=== PATIENT | female | born 1960 | race Caucasian/White ===

== ENCOUNTER → 2018-04-12 15:55 | Outpatient (CLI) | payer BC, SELFPAY ==
--- NOTE | 2018-04-12 16:01 | MM_ITS ---
MM Dig screening mamm BI w/CAD CAD Screening ORDERING PHYSICIAN : Emmie Pickering MD PATIENT AGE: 57 years GENDER: Female HISTORY 57-year-old no hormones no new complaints noncontributory family history COMPARISON: Previous mammograms: September. February 2017 TECHNIQUE: Standard CC and MLO images were obtained. R2 CAD reviewed. FINDINGS: No significant change since previous studies. Mild/moderate residual fibroglandular elements with Some minimal nodularity bilaterally which remain stable since studies dating back to 2014 and 2013 with no significant new areas of concern in either breast. Bilateral follow-up in one year adequate . -------IMPRESSION: ------- Stable bilateral mammogram. No significant new findings. Bilateral follow-up in one year recommended BI-RADS Category: 2 Benign Finding(s) RECOMMENDED FOLLOW-UP: 1YR - 1 YEAR FOLLOW-UP (A letter has been sent to the patient regarding results of the study.)
== END ==
PROVIDERS: Family Provider Family Medicine; PCP Family Medicine; Visit Provider Family Medicine
DX: Z12.31 Encounter for screening mammogram for malignant neoplasm of breast (principal)
CPT/HCPCS: 77067

== ENCOUNTER → 2019-06-03 12:51 | Outpatient (CLI) | payer BC, SELFPAY ==
--- NOTE | 2019-06-03 12:55 | MM_ITS ---
MM Dig screening mamm BI w/CAD ORDERING PHYSICIAN : Emmie Pickering MD PATIENT AGE: 58 years GENDER: Female COMPARISON: Previous digital bilateral mammogram for comparison from February 2017, March 2018, September 2015 INDICATION: ..Routine screening mammogram. No hormones. No new complaints. Noncontributory family history. TECHNIQUE: Standard CC and MLO images were obtained. R2 CAD reviewed. Additional right MLO view; & left cc view nipple profile FINDINGS: Scattered nodular density bilaterally again seen with no unique or discrete new finding of significant concern. Moderate fatty replacement with mild/moderate residual fibroglandular elements and minimal scattered nodularity bilaterally. Same pattern today is previous studies bilateral follow-up in one year recommended. No new dominant mass. No suspicious calcifications. LEFT BREAST: minimal nodularity lateral retroareolar region is unchanged studies dating back to 2007, 2017 2013 RIGHT BREAST the subtle low-density nodularity at the at right retroareolar region most likely reflecting ductal prominence. In either case it appears Stable since 2013 with no significant new findings ...... IMPRESSION: ...... No new areas of significant concern. Stable bilateral mammogram. Stable mild asymmetry & stable minimal nodularity bilaterally . Bilateral follow-up one year recommended BI-RADS Category: 2 Benign Finding(s) RECOMMENDED FOLLOW-UP: 1YR 1 YEAR FOLLOW-UP (A letter has been sent to the patient regarding results of the study.)
--- NOTE | 2019-06-03 12:57 | XR_ITS ---
XR DEXA axial skeleton HISTORY: ITS.REASON: POST MENOPAUSAL SCREENING ORDERING PHYSICIAN: Emmie Pickering MD PATIENT AGE: 58 years COMPARISON: None FINDINGS: The BMD measured at the Left femoral neck is 0.973 g/cm squared with a T score of -0.5. This is considered Normal according to the World Health Organization criteria. Fracture risk is Low. . The L1 L4 density has a T score 4.7 which is normal IMPRESSION: Normal bone density. Low fracture risk. Suggest follow-up exam May 2001
== END ==
PROVIDERS: PCP Family Medicine; Visit Provider Family Medicine
DX: Z78.0 Asymptomatic menopausal state (principal); Z12.31 Encounter for screening mammogram for malignant neoplasm of breast
CPT/HCPCS: 77067; 77080

== ENCOUNTER → 2020-09-05 09:50 | Outpatient (CLI) | payer BC, SELFPAY ==
--- NOTE | 2020-09-05 09:57 | XR_ITS ---
PROCEDURE: XR HIP RT 2-3V W/PELVIS CLINICAL INDICATION: RT HIP PAIN COMPARISON: No exams were available for comparison FINDINGS: Moderate osteoarthritic changes are present involving the right hip. There is prominent exostosis involving the lateral aspect of the right acetabulum. This could result in impingement symptomatology. Correlation with clinical findings needed. There are mild osteoarthritic arthritic changes of the left hip and both SI joints. IMPRESSION: Moderate osteoarthritis of the right hip with prominent hyperostosis the lateral aspect of the acetabulum which could result in impingement symptomatology. Dictated by: Brandan Camacho MD 09/05/2020 16:10 Brandan Camacho MD in [place] 09/05/2020 16:10
== END ==
PROVIDERS: PCP Family Medicine; Visit Provider Family Medicine
DX: M25.551 Pain in right hip (principal)
CPT/HCPCS: 73502

== ENCOUNTER → 2021-03-05 09:26 | Outpatient (CLI) | payer BC, SELFPAY ==
--- NOTE | 2021-03-05 09:30 | XR_ITS ---
PROCEDURE: XR HIP RT 2-3V W/PELVIS CLINICAL INDICATION: RT HIP PAIN COMPARISON: CR XR HIP RT 2-3V W/PELVIS from 09/05/2020 FINDINGS: There are osteoarthritic changes of the right hip with loss of joint space superiorly and osteophyte formation along the acetabulum and femoral head inferiorly. There is a prominent bony hypertrophy along the lateral aspect of the acetabulum similar to the previous exam. Osteoarthritic changes are present in the right SI joint. No acute fracture or dislocation. IMPRESSION: No change osteoarthritis of the right hip with prominent bony hypertrophy along the lateral acetabulum which could result in impingement symptomatology. Dictated by: Brandan Camacho MD 03/05/2021 13:20 Brandan Camacho MD in [place] 03/05/2021 13:20
== END ==
PROVIDERS: PCP Family Medicine; Visit Provider Family Medicine
DX: M25.551 Pain in right hip (principal)
CPT/HCPCS: 73502

== ENCOUNTER → 2021-07-19 15:18 | Outpatient (CLI) | payer BC, SELFPAY ==
--- NOTE | 2021-07-19 15:21 | MM_ITS ---
PROCEDURE: MM DIG SCREENING MAMM BI W/CAD Digital Breast Tomosynthesis Included CLINICAL INDICATION: SCREENING COMPARISON: MG DMSB DIG MAMM-SCREEN HU W/CAD from 03/13/2017 MG SCBI MM Dig screening mamm BI w/CAD from 04/12/2018 MG DIG MAMM-SCREEN HU from 06/03/2019 TECHNIQUE: Standard CC and MLO images and 3D Tomosynthesis was obtained. R2 CAD reviewed. FINDINGS: Average fibroglandular tissue.. Bilateral benign-appearing nodules. No suspicious appearing mass, malignant-appearing microcalcification, architectural distortion, or skin thickening. No significant change IMPRESSION: Benign findings. No evidence of malignancy BI-RAD Category: 2 Benign Finding FOLLOW-UP: 1 YR 1 Year Follow-up (A letter has been sent to the patient regarding results of the study.) Dictated by: Brandan Camacho MD 07/25/2021 09:31 Brandan Camacho MD in [place] 07/25/2021 09:31
== END ==
PROVIDERS: PCP Family Medicine; Visit Provider Family Medicine
DX: Z12.31 Encounter for screening mammogram for malignant neoplasm of breast (principal)
CPT/HCPCS: 77063; 77067

== ENCOUNTER → 2021-10-17 13:07 | Outpatient (CLI) | payer BC, SELFPAY ==
--- NOTE | 2021-10-17 13:13 | CA_ITS ---
APPROVED REPORT EXAM: Comprehensive 2D, Doppler, and color-flow Echocardiogram Stone Decorator: ILIA Cunningham, RVS Ht: 5 ft 2 in Wt: 223lbs BSA: 2.00 BP: 150/90 mmHg Indications: Shortness of Breath, Atrial Fibrillation, Obesity, Hypertension/HDD 2D Dimensions LVDd 5.21 cm LA Volume 95.70 mL Aortic Root 2.57 cm LA Volume Index 47.90 mL/m2 (M/F) 16-34 Left Atrium 4.82 cm LVOT 1.90 cm (M/F) 1.5-2.5 M-Mode Dimensions RVDd 1.86 cm (0.9-2.6) LA Diam 4.58 cm (1.9-4.0) LVDd 5.66 cm (3.5-5.7) Ao Diam 2.74 cm (2.0-3.7) LVDs 3.72 cm (3.5-5.7) IVSd 0.76 cm (0.6-1.1) PWd 0.76 cm (0.6-1.1) EF (Teich) 62.60% EPSs 0.69 cm FS 34.30% EDV (Teich) 157.50 mL TAPSE 1.57 (<1.7) ESV (Teich) 58.90 mL LV Diastology E Decel Time 183.00 (160-240 msec) E/A Ratio 1.85 MED E' 9.70 (< 7 cm/sec) MED A' 7.30 cm/s E'/MED E' Ratio 9.57 (>14) LAT E' 9.30 (<10 cm/sec) LAT A' 5.70 cm/s E/LAT E' Ratio 9.98 (>14) Aortic Valve LVOT Max 108.00 (70-110 cm/s) LVOT VTI 26.82 cm AO Peak GR. 6.00 mmHg Mitral Valve MV A Velocity 50.00 (40-130 cm/s) E/A Ratio 1.85 MV Decel. Time 183.00 (160-240 ms) MV Mean Gr. 1.70 (<2mmHg) Pulmonary Valve PV Peak Velocity 83.00 (50-150 cm/s) Tricuspid Valve TR P. Velocity 240.00 cm/s RAP Estimate 10.00 mmHg RVSP 33.00 mmHg Left Ventricle Left atrium is moderately enlarged, left ventricle is normal size, there is mild concentric left ventricular hypertrophy, visually estimated ejection fraction 50% with no regional wall motion abnormality, grade 2 diastolic dysfunction seen without tissue Doppler evidence of raise left atrial pressure. Right Ventricle Right atrium and right ventricle mildly enlarged with normal contractility. Aortic Valve Aortic valve is thickened and calcified without aortic stenosis or aortic insufficiency. Mitral Valve Mitral valve leaflets are minimally thickened, there is mild mitral regurgitation. Tricuspid Valve Tricuspid valve grossly normal, there is mild tricuspid regurgitation, calculated right ventricular systolic pressure 33 mmHg. Pulmonic Valve Pulmonic valve is poorly visualized. Great Vessels Aortic root is normal size. Inferior vena cava is normal size with normal inspiratory collapse. Pericardium No significant pericardial effusion noted. Conclusion 1. Biatrial enlargement, normal left ventricular size, mild concentric left ventricular hypertrophy, visually estimated ejection fraction 50% with no regional wall motion abnormality, grade 2 diastolic dysfunction seen without tissue Doppler evidence of raise left atrial pressure. 2. Mildly enlarged right ventricle with normal contractility. 3. Mild mitral and tricuspid regurgitation. Calculated right ventricular systolic pressure 33 mmHg. 4. No significant pericardial effusion noted. 5. Inferior vena cava is normal size with normal inspiratory collapse. Electronically signed by : Tom Godinez MD 10/17/2021 14:57:01
== END ==
PROVIDERS: PCP Family Medicine; Visit Provider Family Medicine
DX: R06.09 Other forms of dyspnea (principal); I48.91 Unspecified atrial fibrillation
CPT/HCPCS: 93306

== ENCOUNTER → 2021-10-18 12:14 | Outpatient (CLI) | payer BC, SELFPAY | PROVIDERS: PCP Family Medicine; Visit Provider Urology | DX: R06.00 Dyspnea, unspecified (principal); I48.91 Unspecified atrial fibrillation; I10 Essential (primary) hypertension; R94.31 Abnormal electrocardiogram [ECG] [EKG]; E11.9 Type 2 diabetes mellitus without complications; Z79.84 Long term (current) use of oral hypoglycemic drugs | CPT/HCPCS: 93270 ==

== ENCOUNTER → 2021-10-25 07:08 | Outpatient (CLI) | payer BC, SELFPAY ==
--- NOTE | 2021-10-25 | CA_ITS ---
APPROVED REPORT Exam: Pharmacologic Technologist: Iram Atwood, Ht: 5 ft 2 in Wt: 222 lbs BSA: 2.00 m2 HR: 115 bpm BP: 138/82 mmHg Rhythm: AFLUTTER WITH 2:1 AV CONDUCTION, T WAVE ABNS INFERIORLY AND LATERALLY Medical History Medical History: HTN, Hyperlipidemia, Smoking Medications: Simvastatin,,,,, Metformin,,,,, Albuterol,,,,, Escitalopram Oxalate,,,,, DiTiazem,,,,, RIvaROXABAN,,,,, Allergies: No known drug allergies Cardiac Risk Factors: HTN, Hyperlipidemia, Diabetes,, FHX of CAD Stress Test Details Test: LEXISCAN HR Resting HR: 118 bpm Max Heart Rate (APMHR): 157.806559 bpm Max HR Achieved: 136 bpm Target HR (85% APMHR): 133.066181 bpm % of APMHR: 86.62 Recovery HR: 105 bpm BP Resting BP: 138/82 mmHg Max BP: 160/80 mmHg Recovery BP: 135.0/71.0 mmHg ECG Resting ECG: AFLUTTER WITH 2:1 AV CONDUCTION, T WAVE ABNS INFERIORLY AND LATERALLY Clinical Exercise duration: 04:01 min Highest Stage Achieved: Stress ECG Conclusion PT HAS NOT TAKEN DITIAZEM TODAY. PT BECAME SOA BUT HAD NO CP. METOPROLOL 2.5 MG IV GIVEN FOR INCREASED HR. OCC PVC VS ABERRANT BEAT. UNREMARKABLE LEXISCAN STRESS. MYOVIEW IMAGES REPORTED SEPARATELY. Electronically signed by : Tom Godinez MD 10/27/2021 09:17:31
--- NOTE | 2021-10-25 07:13 | NM_ITS ---
APPROVED REPORT Exam: Nuclear Stress Test Indication: Afib, Chest pain, SOB, Palpitations, HTN, DM, High cholesterol, Family history Patient Location: Outpatient Stress Tech: Iram Atwood [place] Tech:Becky Alberto, ARRT, RT (R)(N) Ht: 5 ft 2 in Wt: 223 lbs Bra Size: 44DDD HR: 118 bpm BP: 138/82 mmHg BSA: 2.00 m2 BMI: 40.7 History: Afib, Chest pain, SOB, Palpitations, HTN, DM, High cholesterol, Family history Procedure: Patient received a 0.4 mg of intravenous Lexiscan, resting heart rate 118 bpm, resting blood pressure 138/82 mmHg, with Lexiscan maximum heart rate achived was 136 bpm which is Greater than 85 % of the maximum predicted heart rate and blood pressure was 160/80 mmHg. With Lexiscan, patient denied any complaint of chest pain. Electrocardiogram Resting electrocardiogram shows atrial fib flutter, with Lexiscan there is less than 1.[address] segment depression noted from the baseline EKG. The EKG portion of the Lexiscan is nondiagnostic due to baseline abnormal EKG. Cardiac Stress and Resting SPECT Images: Cardiac Stress and Resting SPECT images were obtained using technetium 99m Myoview 32.7 mCi stress and 10.87 mCi at rest. Gated SPECT for analysis of segmental wall motion and calculation of the ejection fraction also done. Prone images were also obtained. Cardiac stress and resting SPECT images show uniform myocardial activity without segmental perfusion abnormality, computer derived ejection fraction is over 65% with no regional wall motion abnormality, right ventricle is normal size and contractility. Conclusion: 1. The EKG portion of the Lexiscan Myoview is nondiagnostic. 2. No scintigraphic evidence of reversible ischemia seen, computer derived ejection fraction is over 65% with no regional wall motion abnormality, right ventricle is normal size and contractility. 3. Normal Lexiscan Myoview study. Electronically signed by : Tom Godinez MD 10/27/2021 10:04:08
--- NOTE | 2021-10-25 08:57 | HMH.ITSHM ---
Current Home Medications as stated by this patient Brandy Atkinson or sales support representative. []SIMVASTATIN RIVAROXABAN METFORMIN DILTIAZEM ALBUTEROL LEXAPRO
== END ==
PROVIDERS: PCP Family Medicine; Visit Provider Urology
DX: R06.00 Dyspnea, unspecified (principal); I48.91 Unspecified atrial fibrillation; I10 Essential (primary) hypertension; E11.9 Type 2 diabetes mellitus without complications; R94.31 Abnormal electrocardiogram [ECG] [EKG]; Z79.84 Long term (current) use of oral hypoglycemic drugs
CPT/HCPCS: 78452; 93017; A9502; J2785

== ENCOUNTER 2021-10-28 10:12 | Inpatient (IN) | payer BC, SELFPAY ==
[2021-10-28] VITALS (7 sets, daily range): BP systolic 129–159; BP diastolic 66–77; PULSE 74–120; RESP 18–25; TEMP 36.7–37.1; O2SAT 94–97; BMI 38.7
--- NOTE | 2021-10-28 10:41 | XR_ITS ---
PROCEDURE: XR CHEST PORTABLE CLINICAL HISTORY: sob Cough COMPARISON: No exams were available for comparison FINDINGS: The cardiomediastinal silhouette and pulmonary vascularity are within normal limits. There is a medium-sized left pleural effusion. Underlying atelectasis or infiltrate also suspected in the left lower lung zone. Right lung is clear. No acute bony abnormalities. IMPRESSION: Medium-sized left effusion with underlying airspace disease Dictated by: Brandan Camacho MD 10/28/2021 11:06 Brandan Camacho MD in [place] 10/28/2021 11:06
--- NOTE | 2021-10-28 10:48 | HMH.PNCARD ---
Subjective Date: 10/28/21 Time: 10:48 Principal diagnosis: afib with RVR Interval history: Please see cardiology office visit note from today for consult. Below is the plan: Pt here for test follow up and she has been feeling bad since last visit with tachycardia and palpitations. ECHO showed: 1. Biatrial enlargement, normal left ventricular size, mild concentric left ventricular hypertrophy, visually estimated ejection fraction 50% with no regional wall motion abnormality, grade 2 diastolic dysfunction seen without tissue Doppler evidence of raise left atrial pressure. 2. Mildly enlarged right ventricle with normal contractility. 3. Mild mitral and tricuspid regurgitation. Calculated right ventricular systolic pressure 33 mmHg. 4. No significant pericardial effusion noted. 5. Inferior vena cava is normal size with normal inspiratory collapse. Stress test showed: 1. The EKG portion of the Lexiscan Myoview is nondiagnostic. 2. No scintigraphic evidence of reversible ischemia seen, computer derived ejection fraction is over 65% with no regional wall motion abnormality, right ventricle is normal size and contractility. 3. Normal Lexiscan Myoview study. Denies cp & pressure. Having rapid heart rate, she has been feeling palpitations since last Wed. SOB with activity & when laying down. she states this is wrose with activity. extremely fatigued as well and just does not feel well. BP is high today. Pt wt down 3 lbs. LDL goal is < 100. DM2 is well controlled, on Metformin EKG is Atrial fibrillation with RVR, cannot rule out anterior infarct, age undetermined, T wave abnormality, consider inferolateral ischemia, rate is 160 bpm. Admit the patient to the hospital for atrial fibrillation with RVR. Admit to [facility]. Start a diltiazem drip for rate control Start Toprol XL 25 mg daily for afib. Continue Xarelto. Full labs on admission. Will obtain a CXR.
[2021-10-28 10:49] LABS: Basophils # 0.1 K/mm3 (0-0.2); Basophils % 0.5 % (0.1-2.0); Eosinophils # 0.2 K/mm3 (0.0-0.4); Eosinophils % 1.5 % (0.1-12.0); Hematocrit 44.1 % (37.0-47.0); Hemoglobin 14.4 g/dL (12.2-16.2); Lymphocytes # 1.8 K/mm3 (0.7-4.5); Mean Corpuscular HGB Conc 32.6 g/dL (31.8-35.4); Mean Corpuscular Hemoglobin 28.3 pg (27.0-31.2); Mean Corpuscular Volume 86.7 fl (81-99); Mean Platelet Volume 8.1 fl (7.4-10.4); Monocytes # 0.5 K/mm3 (0.1-1.0); Monocytes % 4.3 % (1.7-9.3); Neutrophils % 76.6 % (37.0-80.0); Platelet Count 644 K/mm3 (142-424); Red Blood Count 5.09 M/mm3 (4.20-5.40); Red Cell Distribution Width 14.2 % (11.5-17.5); White Blood Count 10.4 K/mm3 (4.8-10.8)
[2021-10-28 10:50] LABS: Chloride 100 mmol/L (98-107); Potassium 4.4 mmoL/L (3.5-5.1); Sodium 138 mmol/L (136-145)
[2021-10-28 10:53] LABS: Alanine Aminotransferase 19 U/L (12-78); Albumin Level 3.8 g/dl (3.5-5.0); Alkaline Phosphatase 127 U/L (38-126); Anion Gap 14.4 mEq/L (5-15); Aspartate Amino Transferase 35 U/L (14-36); Bilirubin,Direct 0.2 mg/dl (0.0-0.4); Bilirubin,Indirect 0.3 mg/dL (0.0-0.9); Bilirubin,Total 0.5 mg/dl (0.2-1.3); Bilirubin,Unconjugated 0.3 mg/dL (0.0-1.1); Blood Urea Nitrogen 12 mg/dl (7-17); Calcium 9.9 mg/dl (8.4-10.2); Carbon Dioxide 28 mmol/L (22.0-30.0); Estimated Glomerular Filt Rate 85 ml/min (>60); GFR (African American) 102 ML/MIN (>60); Glucose 212 mg/dl (74-100); Total Protein,Serum 7.6 g/dl (6.3-8.2)
[2021-10-28 11:07] LABS: Troponin I < 0.01 ng/ml (0.00-0.034)
[2021-10-28 11:19] LABS: Free T4 (Free Thyroxine) 2.48 ng/dl (0.78-2.19)
[2021-10-28 11:33] LABS: Thyroid Stimulating Hormone 2.16 uIU/mL (0.465-4.68)
--- NOTE | 2021-10-28 12:35 | PC.NURSE ---
called and spoke with jaspal villatoro about patient. patient heart rate upon coming to floor was 80-106. asked if she wanted us to start the diltiazem gtt or hold. she stated to go ahead and give the metoprolol dose and call back in a couple of hours about heart rate.
[2021-10-28 12:44] LABS: Coronavirus 19, PCR Not Detected (NotDetected); Influenza A, PCR Not Detected (NotDetected); Influenza B, PCR Not Detected (NotDetected)
--- NOTE | 2021-10-28 13:40 | HMH.PHAINT ---
MEDICATION RECONCILIATION COMPLETED ON PATIENT USING EXTERNAL FILL HISTORY FROM PHARMACY. -AURELIO RAMÍREZ, PHILIPD
--- NOTE | 2021-10-28 13:41 | HMH.PHAVTE ---
[facility] Pharmacy VTE Monitoring - Patient Demographics Admission date: 10/28/21 Report Date: 10/28/21 Time: 13:41 Allergies/Adverse Reactions: Patient Allergies No Known Allergies Allergy (Verified 10/28/21 09:34) Height: 1.57 m Weight: 95.935 kg - VTE Risk Labs: VTE Related Lab Results Hgb 14.4 g/dL (12.2-16.2) 10/28/21 10:20 Hct 44.1 % (37.0-47.0) 10/28/21 10:20 Plt Count 644 K/mm3 (142-424) H 10/28/21 10:20 BUN 12 mg/dl (7-17) 10/28/21 10:20 Creatinine 0.70 mg/dl (0.52-1.04) 10/28/21 10:20 VTE Score: 2 VTE Risk Level: Very Low Risk - Prophylaxis VTE Prophylaxis Ordered?: Yes Types of VTE Prophylaxis: TEDS Knee High, Pharmacological Location of Applied Device: Bilateral Lower Extremeties Pharmacologic Type: Other (XARELTO)
--- NOTE | 2021-10-28 23:07 | PC.NURSE ---
Controlled afib on telemetry at this time. She ambulated to the bathroom and her pulse was 117 upon her return to bed. After approx. 5 minutes it returned to a controlled rate in the 90s. She continues on RA. Denies SOA. Denies pain. Reports her last BM was today.
[2021-10-29] VITALS (7 sets, daily range): BP systolic 119–138; BP diastolic 65–89; PULSE 60–91; RESP 18–24; TEMP 36.3–37.4; O2SAT 94–97; BMI 38.8
[2021-10-29 06:18] LABS: Basophils % 0.6 % (0.1-2.0); Eosinophils # 0.1 K/mm3 (0.0-0.4); Eosinophils % 1.7 % (0.1-12.0); Hematocrit 40.9 % (37.0-47.0); Hemoglobin 13.2 g/dL (12.2-16.2); Lymphocytes % 25.3 % (10-50); Mean Corpuscular HGB Conc 32.3 g/dL (31.8-35.4); Mean Corpuscular Hemoglobin 28.3 pg (27.0-31.2); Mean Corpuscular Volume 87.8 fl (81-99); Mean Platelet Volume 8.5 fl (7.4-10.4); Monocytes # 0.4 K/mm3 (0.1-1.0); Neutrophils # 5.3 K/mm3 (1.8-7.8); Neutrophils % 67.5 % (37.0-80.0); Platelet Count 602 K/mm3 (142-424); Red Blood Count 4.65 M/mm3 (4.20-5.40); Red Cell Distribution Width 14.2 % (11.5-17.5); White Blood Count 7.8 K/mm3 (4.8-10.8)
[2021-10-29 06:35] LABS: Blood Urea Nitrogen 10 mg/dl (7-17); Calcium 9.6 mg/dl (8.4-10.2); Carbon Dioxide 28 mmol/L (22.0-30.0); Chloride 102 mmol/L (98-107); Chol/HDL Ratio 6.7 (1-3.5); Cholesterol 127 mg/dl (140-200); Creatinine Clearance Estimated 87 mL/min (50-200); Estimated Glomerular Filt Rate 101 ml/min (>60); GFR (African American) 122 ML/MIN (>60); Glucose 152 mg/dl (74-100); HDL Cholesterol 19 mg/dl (40-60); Sodium 134 mmol/L (136-145); Triglycerides 91 mg/dl (30-150); VLDL Cholesterol 18 mg/dL (0-40)
[2021-10-29 06:46] LABS: Direct LDL Cholesterol 84.68 mg/dL (100-129)
--- NOTE | 2021-10-29 07:21 | HMH.HP ---
*Admission Date: 10/28/21 *Chief complaint: Shortness of breath and palpitations *History of present illness: 61-year-old female diagnosed with atrial fibrillation approximately 1 month ago presented to the cardiology clinic yesterday for routine follow-up and was found to be in A. fib with rapid ventricular response with associated shortness of breath and was admitted for treatment. Initial plan had been to admit the patient for Cardizem drip but on arrival to the floor patient's pulse was in the 90s and low 100s. Cardizem drip was held and patient was treated with oral medications. Patient had additional work-up which did reveal a large left-sided pleural effusion. Patient does endorse symptoms of cough, dyspnea on exertion, orthopnea. Echocardiogram performed as an outpatient as part of her atrial fibrillation work-up also has revealed grade 2 diastolic dysfunction. Patient has remained rate controlled since admission with transient increases in pulse to the 110s generally associated with ambulation. [facility] History I have reviewed the patient's past medical history: Yes Medical History: Reports:: Atrial Fibrillation, Depression, Diabetes Mellitus Type 2, Hyperlipidemia, Hypertension Denies:: Diabetes Mellitus Type 1, Internal Pacemaker, Lung Disease, Seizures *Have you ever received a pneumonia vaccine?: Yes *Have you received a flu vaccine this season?: Yes Other Medical History: Reports: Arthritis Laterality Cases: Right: Total Hip Replacement Other Surgeries: Yes: Dilation and Curettage, Hysterectomy-Total. No: Pacemaker Amputation: No Fractures: No - *Social History Smoking Status: Never smoker Alcohol Intake: never Substance Use Type: denies use *Occupational Status:: unemployed *Travel in the last 8 weeks: None - Psychiatric History Pschychiatric History:: Reports:: Depression Family Hx:: Heart Attack, Kidney Disease Review of Systems - Constitutional Denies chills, Denies lack of energy - Eyes Denies blurry vision - ENT Denies difficulty swallowing - *Cardiovascular Reports shortness of breath with activity, Denies chest pain at rest, Denies chest pain with activity - *Respiratory Reports cough, Reports shortness of breath, Reports shortness of breath with activity, Denies chest congestion - *Gastrointestinal Denies abdominal pain, Denies loose stools - *Genitourinary Denies painful urination - *Musculoskeletal Denies joint pain - Integumentary/Breasts Denies hair loss - *Neurologic Denies abnormal walking, Denies confusion Meds Home Medications Medication Instructions Recorded Confirmed Type Escitalopram Oxalate [Lexapro] 20 mg PO DAILY 08/03/18 10/28/21 History diltiazem HCl 180 mg 180 mg PO DAILY cap 10/18/21 10/28/21 History capsule,extended release 24 hr, controlled metformin 500 mg tablet 500 mg PO BIDWMEAL tab 10/18/21 10/28/21 History rivaroxaban 20 mg tablet 20 mg PO QPMWITHMEAL tab 10/18/21 10/28/21 History simvastatin 40 mg tablet 40 mg PO HS tab 10/18/21 10/28/21 History Albuterol Sulfate [Albuterol 2 puffs IH Q4HP PRN 10/28/21 10/28/21 History Sulfate Hfa] Allergies Allergy/AdvReac Type Severity Reaction Status Date / Time No Known Allergies Allergy Verified 10/28/21 09:34 Exam Vital signs and Labs for Last 24 Hours: Temp Pulse Resp BP Pulse Ox 97.9 F 85 19 128/77 94 L 10/29/21 04:00 10/29/21 04:00 10/29/21 04:00 10/29/21 04:00 10/29/21 04:00 Laboratory Results - last 24 hr 10/28/21 10:20: WBC 10.4, RBC 5.09, Hgb 14.4, Hct 44.1, MCV 86.7, MCH 28.3, MCHC 32.6, RDW 14.2, Plt Count 644 H, MPV 8.1, Neut % (Auto) 76.6, Lymph % (Auto) 17.0, [place] % (Auto) 4.3, Eos % (Auto) 1.5, Baso % (Auto) 0.5, Neut # (Auto) 8.0 H, Lymph # (Auto) 1.8, [place] # (Auto) 0.5, Eos # (Auto) 0.2, Baso # (Auto) 0.1 10/28/21 10:20: Sodium 138, Potassium 4.4, Chloride 100, Carbon Dioxide 28, Anion Gap 14.4, BUN 12, Creatinine 0.70, Estimated GFR 85, Est GFR (Afri
--- NOTE | 2021-10-29 09:07 | HMH.PNCARD ---
Subjective Date: 10/29/21 Time: 08:00 Principal diagnosis: afib with RVR Interval history: 61-year-old female admitted to [facility] yesterday following her cardiology appointment. Patient was noted to be in atrial fibrillation with RVR with a heart rate of 160 bpm. Patient states she had been having increased shortness of breath and worsening palpitations for a week prior to her appointment with cardiology. Patient was admitted with atrial fibrillation with RVR and started on diltiazem drip. Prior to diltiazem drip being started, patient's heart rate decreased into the 80s. Patient stated her shortness of breath had improved. Patient denies chest pain, tightness or pressure. Patient denies shortness of breath. No swelling noted of the lower extremities. lunchroom monitor reveals atrial fibrillation with a heart rate of 86 bpm. Patient is currently on diltiazem 180 mg p.o. twice daily for heart rate and blood pressure control. Patient was also started on metoprolol 50 mg daily p.o. for heart rate and BP control. Patient had no events throughout the night. Patient is able to ambulate to the restroom and around the room with no assistance. Heart rate does increase slightly with activity to 100-104bpm, then regulates into the 80's. Blood pressure is stable. Chest x-ray was performed which revealed medium sized left effusion with underlying airspace disease. It is planned for patient to have a thoracentesis in the morning. PCP has held her Xarelto for this process. Patient will resume Xarelto once procedure is completed. CXR:IMPRESSION: Medium-sized left effusion with underlying airspace disease Exam Vital signs and Labs for Last 24 Hours: Temp Pulse Resp BP Pulse Ox 97.3 F L 83 24 135/83 95 10/29/21 08:00 10/29/21 08:00 10/29/21 08:00 10/29/21 08:00 10/29/21 08:00 Laboratory Results - last 24 hr 10/28/21 10:20: WBC 10.4, RBC 5.09, Hgb 14.4, Hct 44.1, MCV 86.7, MCH 28.3, MCHC 32.6, RDW 14.2, Plt Count 644 H, MPV 8.1, Neut % (Auto) 76.6, Lymph % (Auto) 17.0, [place] % (Auto) 4.3, Eos % (Auto) 1.5, Baso % (Auto) 0.5, Neut # (Auto) 8.0 H, Lymph # (Auto) 1.8, [place] # (Auto) 0.5, Eos # (Auto) 0.2, Baso # (Auto) 0.1 10/28/21 10:20: Sodium 138, Potassium 4.4, Chloride 100, Carbon Dioxide 28, Anion Gap 14.4, BUN 12, Creatinine 0.70, Estimated GFR 85, Est GFR ( Amer) 102, Glucose 212 H, Calcium 9.9, Total Bilirubin 0.5, Direct Bilirubin 0.2, Conjugated Bilirubin 0.0, Indirect Bilirubin 0.3, Unconjugated Bilirubin 0.3, AST 35, ALT 19, Alkaline Phosphatase 127 H, Troponin I < 0.01, Total Protein 7.6, Albumin 3.8 10/28/21 10:20: Magnesium 2.0, TSH 2.16 10/28/21 10:20: Free T4 2.48 H 10/28/21 12:07: SARS-CoV-2 (PCR) Not detected, Influenza A Untype (PCR) Not detected, Influenza Type B (PCR) Not detected 10/29/21 05:39: WBC 7.8, RBC 4.65, Hgb 13.2, Hct 40.9, MCV 87.8, MCH 28.3, MCHC 32.3, RDW 14.2, Plt Count 602 H, MPV 8.5, Neut % (Auto) 67.5, Lymph % (Auto) 25.3, [place] % (Auto) 5.0, Eos % (Auto) 1.7, Baso % (Auto) 0.6, Neut # (Auto) 5.3, Lymph # (Auto) 2.0, [place] # (Auto) 0.4, Eos # (Auto) 0.1, Baso # (Auto) 0.0 10/29/21 05:39: Sodium 134 L, Potassium 4.0, Chloride 102, Carbon Dioxide 28, Anion Gap 8.0, BUN 10, Creatinine 0.60, Estimated Creat Clear 87, Estimated GFR 101, Est GFR ( Amer) 122, Glucose 152 H D, Calcium 9.6, Triglycerides 91, Cholesterol 127 L, LDL Cholesterol Direct 84.68 L, VLDL Cholesterol 18, HDL Cholesterol 19 L, Cholesterol/HDL Ratio 6.7 H I & O for Last 24 hours: Intake & Output 10/26/21 10/27/21 10/28/21 10/29/21 23:59 23:59 23:59 23:59 Intake Total 600 / 600 130 / 130 Balance 600 / 600 130 / 130 Weight 211 lb 8 oz 211 lb - Constitutional no acute distress, obese, cooperative - *Routine HEENT Exam Head: Present: normocephalic ENT: Present: mucous membranes moist - *Routine Neck Exam Present: supple, full ROM, normal carotid upstroke. Absent: JVD, carotid
--- NOTE | 2021-10-29 16:22 | PC.NURSE ---
Pt is alert and oriented x4. Lungs are clear (left side diminished), bowel sounds active x4. She remains on RA w/O2 sats running in the upper 90's. She has been afib on telemetry. She denies chest pain. She does report being sob at times. She ambulates to the bathroom independently with no distress. Appetite has been good. Printed materials given to patient on pleural effusions and thoracentesis. She has had no further questions.
--- NOTE | 2021-10-29 16:24 | PC.NURSE ---
PT TO ROOM 279 PER WHEELCHAIR AT THIS TIME
[2021-10-30] VITALS (17 sets, daily range): BP systolic 110–133; BP diastolic 44–78; PULSE 59–82; RESP 16–19; TEMP 36.5–36.7; O2SAT 92–98
--- NOTE | 2021-10-30 04:27 | PC.NURSE ---
PT HAS DONE WELL THIS SHIFT. NO ACUTE CHANGES. A&O X4. BOWELS ACTIVE X4 QUADRANTS. LUNGS CTAB. PT REPORTS MILD AND INTERMITTENT SOB. DENIES CHEST PAIN OR TIGHTNESS. VSS. IV IN RIGHT A/C PATENT. PT HAS SHOWERED. CALL ROMERO IN REACH. WILL CONTINUE TO MONITOR
--- NOTE | 2021-10-30 06:40 | PC.NURSE ---
DR. FLANAGAN AT BEDSIDE. PLANNED THORACENTESIS FOR TODAY WITH DR. AGUILERA THEN D/C HOME
--- NOTE | 2021-10-30 06:40 | US_ITS ---
PROCEDURE: US THORACENTESIS CLINICAL INDICATION: medium left pleural effusion, SOA COMPARISON: No exams were available for comparison TECHNIQUE: Informed consent was obtain prior to procedure. After appropriate Time out, under aseptic conditions and local anesthesia with 1% buffered lidocaine using sonographic guidance a 6 Cuban Xguj-Q-Nbnbuilp catheter was inserted into the largest pocket of fluid localized in the left posterior hemithorax. Approximately 800 mL serosanguineous fluid was drained. The patient tolerated the procedure well and left the radiology suite in stable condition. Post thoracentesis radiograph showed no evidence of pneumothorax. FINDINGS: Left pleural effusion which decreased significantly. IMPRESSION: Successful sonographic guided thoracentesis without complication. Dictated by: Brandan Camacho MD 10/30/2021 17:57 Brandan Camacho MD in [place] 10/30/2021 17:57
--- NOTE | 2021-10-30 06:44 | HMH.ACPN2 ---
Internal Medicine - PN: Subj *Date: 10/30/21 *Time: 06:44 Interval history: Patient is remained stable over the last 24 hours. Pulse rate has been between 60 and 80. She remains in A. fib and continues to report dyspnea on exertion. She denies palpitations Exam Vital signs and Labs for Last 24 Hours: Temp Pulse Resp BP Pulse Ox 98.1 F 72 18 118/70 98 10/30/21 04:05 10/30/21 04:05 10/30/21 04:05 10/30/21 04:05 10/30/21 04:05 Laboratory Results - last 24 hr 10/29/21 05:39: LDL Cholesterol Direct 84.68 L I & O for Last 24 hours: Intake & Output 10/27/21 10/28/21 10/29/21 10/30/21 11:59 11:59 11:59 11:59 Intake Total 730 / 730 Balance 730 / 730 Weight 211 lb Narrative: Patient looks comfortable and is in no distress. She does not require supplemental oxygen. Heart is irregularly irregular. Lungs have diminished near absent breath sounds at the left lung base due to her pleural effusion. Abdomen is soft. Lower extremities have trace edema Assessment and Plan (1) Atrial fibrillation with RVR Status: Acute Category: Medical Code(s): I48.91 - Unspecified atrial fibrillation (2) Pleural effusion, left Status: Acute Category: Medical Code(s): J90 - Pleural effusion, not elsewhere classified (3) Diastolic dysfunction, left ventricle Status: Acute Category: Medical Code(s): I51.9 - Heart disease, unspecified (4) DM2 (diabetes mellitus, type 2) Status: Chronic Qualifiers: Diabetes mellitus intermodal truck driver insulin use: without intermodal truck driver use Diabetes mellitus complication status: without complication Qualified Code(s): E11.9 - Type 2 diabetes mellitus without complications Category: Medical Code(s): E11.9 - Type 2 diabetes mellitus without complications - Assessment and plan all Dx Assessment and Plan for all problems:: 1. A. fib is now controlled. Patient will restart Xarelto after thoracentesis 2. Ultrasound-guided thoracentesis today with labs. Patient has significant dyspnea on exertion due to her pleural effusion. Patient's last dose of Xarelto was October 28. 3. Patient may be discharged home later today after her thoracentesis
--- NOTE | 2021-10-30 08:20 | PC.NURSE ---
Spoke with Neema (Radiology) on phone about upcoming procedure. States that pt is okay to take morning medications with water. Also clarified last time pt took Xarelto. Consent for procedure signed at this time. Pt's at bs. Procedure should take place in 9 o'clock hour.
[2021-10-30 08:34] LABS: Chloride 103 mmol/L (98-107); Potassium 4.4 mmoL/L (3.5-5.1); Sodium 136 mmol/L (136-145)
[2021-10-30 08:36] LABS: Alanine Aminotransferase 12 U/L (12-78); Aspartate Amino Transferase 26 U/L (14-36); Blood Urea Nitrogen 10 mg/dl (7-17); Creatinine Clearance Estimated 87 mL/min (50-200); Estimated Glomerular Filt Rate 125 ml/min (>60); GFR (African American) 151 ML/MIN (>60)
[2021-10-30 08:37] LABS: Albumin Level 3.5 g/dl (3.5-5.0); Alkaline Phosphatase 101 U/L (38-126); Anion Gap 11.4 mEq/L (5-15); Bilirubin,Total 0.3 mg/dl (0.2-1.3); Calcium 9.1 mg/dl (8.4-10.2); Carbon Dioxide 26 mmol/L (22.0-30.0); Globulin 3.6 g/dL (1.3-3.2); Glucose 142 mg/dl (74-100); Total Protein,Serum 7.1 g/dl (6.3-8.2)
--- NOTE | 2021-10-30 09:06 | PC.NURSE ---
Radiology here to get pt for thorocentesis.
--- NOTE | 2021-10-30 09:08 | PC.NURSE ---
Radiology here to get pt for thoracentesis.
--- NOTE | 2021-10-30 09:54 | XR_ITS ---
PROCEDURE: XR CHEST 2V CLINICAL HISTORY: POST LT THORO COMPARISON: CR XR CHEST PORTABLE from 10/28/2021 FINDINGS: No evidence of pneumothorax. There remains increased density in the left lower lobe. The thoracentesis was performed with ultrasound and there did not appear to be much fluid left during the thoracentesis. The increased density in the left lower lobe may be related to a large area of consolidation along with elevated hemidiaphragm. Chest CT with contrast may provide further evaluation. The right lung is clear. There are degenerative changes in the thoracic spine. No acute bony abnormalities. IMPRESSION: Status post left-sided thoracentesis. No evidence of pneumothorax. There remains increased density in the left lower lobe suggesting left lower lobe pneumonia/volume loss with elevated hemidiaphragm. Chest CT with contrast may confirm. Dictated by: Brandan Camacho MD 10/30/2021 10:32 Brandan aCmacho MD in [facility] 10/30/2021 10:32
--- NOTE | 2021-10-30 10:29 | PC.NURSE ---
Pt returned back to room 279 from radiology
[2021-10-30 11:05] LABS: Appearance,Body Fld. Cloudy; Source, Body Fld. Pleural Fluid
[2021-10-30 11:06] LABS: Volume,Body Fld. 1000 mL
--- NOTE | 2021-10-30 11:08 | PC.NURSE ---
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
--- NOTE | 2021-10-30 11:12 | HMH.PNCARD ---
Subjective Date: 10/30/21 Time: 10:00 Principal diagnosis: afib with RVR Interval history: 61-year-old female admitted to [facility] for atrial fib RVR. Patient denies chest pain, tightness or pressure. Patient complains of slight shortness of breath. Patient states shortness of breath is improving. Patient did undergo a thoracentesis this a.m. 1000 cc of drainage was drained. Patient states she is already feeling better. Minimal swelling noted of the lower extremities. 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 Patient is currently on diltiazem 180 mg p.o. twice daily along with metoprolol 50 mg twice daily for heart rate and blood pressure control. Heart rate and rhythm are responding to the medication combination. Xarelto will be restarted this evening due to her atrial fibrillation. CXR:IMPRESSION: Status post left-sided thoracentesis. No evidence of pneumothorax. There remains increased density in the left lower lobe suggesting left lower lobe pneumonia/volume loss with elevated hemidiaphragm. Chest CT with contrast may confirm. Exam Vital signs and Labs for Last 24 Hours: Temp Pulse Resp BP Pulse Ox 97.7 F 74 17 123/78 95 10/30/21 08:56 10/30/21 08:56 10/30/21 08:56 10/30/21 08:56 10/30/21 08:56 Laboratory Results - last 24 hr 10/30/21 08:00: Sodium 136, Potassium 4.4, Chloride 103, Carbon Dioxide 26, Anion Gap 11.4, BUN 10, Creatinine 0.50 L, Estimated Creat Clear 87, Estimated GFR 125, Est GFR ( Amer) 151 D, Glucose 142 H, Calcium 9.1, Total Bilirubin 0.3, AST 26 D, ALT 12 D, Alkaline Phosphatase 101, Total Protein 7.1, Albumin 3.5, Globulin 3.6 H, Albumin/Globulin Ratio 1.0 L 10/30/21 10:18: Fluid Source Pleural fluid, Fluid Volume 1000, Fluid Appearance Cloudy I & O for Last 24 hours: Intake & Output 10/27/21 10/28/21 10/29/21 10/30/21 23:59 23:59 23:59 23:59 Intake Total 600 / 600 130 / 130 Balance 600 / 600 130 / 130 Weight 211 lb 8 oz 211 lb - Constitutional mild distress, obese, cooperative - *Routine HEENT Exam Head: Present: normocephalic ENT: Present: mucous membranes moist - *Routine Neck Exam Present: supple, full ROM, normal carotid upstroke. Absent: JVD, carotid bruit, lymphadenopathy - *Routine Respiratory Exam Present: accessory muscle use, distant breath sounds Comments: left lung - *Routine Cardiovascular Exam Present: irregular rhythm, irregularly irregular - *Routine Abdominal Exam Present: soft, normoactive bowel sounds. Absent: tenderness, distended, rebound, firm - *Routine Extremities Exam Present: edema, full ROM, pulses intact, normal capillary refill - *Routine Skin Exam Present: intact, dry, warm, normal turgor. Absent: erythema - *Routine Neurological Exam Present: alert, oriented X3, CN II-XII intact, moving all extremities - Routine Psychiatric Exam Present: normal affect, normal thought process, cooperative Progress Note: A&P (1) Atrial fibrillation with RVR Status: Acute (2) Pleural effusion, left Status: Acute (3) Diastolic dysfunction, left ventricle Status: Acute (4) DM2 (diabetes mellitus, type 2) Status: Chronic Assessment and Plan for All Diagnoses:: Plan: 1. 61-year-old female admitted to [facility] with atrial fibrillation with RVR. Patient states her dyspnea had improved. Patient remains rate controlled in atrial fibrillation. Patient is currently on diltiazem 180 mg p.o. twice daily and metoprolol 50 mg daily for heart rate and BP control. 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 Xarelto will be restarted this evening for anticoagulation. Patient denies chest pain, tightness or pressure. 2. Hypertension. Stable. 3. History of hyperlipidemia. On statin therapy. Managed by PCP. LDL goal<100. 4. Encourage diet and weight loss. 5. History
[2021-10-30 14:12] LABS: RBC,Body Fluid < 10 cells/uL (< 10 X 10^3); TNC,Body Fluid 1294 cells/uL (< 1000)
--- NOTE | 2021-10-30 14:30 | XR_ITS ---
PROCEDURE: XR CHEST 2V CLINICAL HISTORY: order for repeat xray at 1430 today Follow-up thoracentesis COMPARISON: CR XR CHEST PORTABLE from 10/28/2021 US US THORACENTESIS from 10/30/2021 CR XR CHEST 2V from 10/30/2021 FINDINGS: No evidence of pneumothorax. There remains opacification in the left lung base as previously described which could be related to residual effusion, consolidation, volume loss, or elevated hemidiaphragm. This is not significantly changed. Unremarkable cardiovascular structures. No acute bony abnormalities. IMPRESSION: No evidence of pneumothorax. No change in the persistent opacification in the left lung base. Dictated by: Brandan Camacho MD 10/30/2021 15:19 Brandan Camacho MD in [facility] 10/30/2021 15:19
--- NOTE | 2021-10-30 14:59 | PC.NURSE ---
Taken back to Radiology for repeat of xray.
--- NOTE | 2021-10-30 15:03 | PC.NURSE ---
Pt returned to unit from Radiology
[2021-10-30 16:27] LABS: Lactate Dehydrogenase 185 U/L (313-618)
[2021-10-30 17:01] LABS: Mononuclear WBCs,Body Fluid 93 %; Polynuclear WBC,Body Fluid 7 %
--- NOTE | 2021-10-31 07:34 | HMH.DCSUM ---
General - General Admission date:: 10/28/21 Discharge date: 10/30/21 HPI HPI: 61-year-old female diagnosed with atrial fibrillation approximately 1 month ago presented to the cardiology clinic yesterday for routine follow-up and was found to be in A. fib with rapid ventricular response with associated shortness of breath and was admitted for treatment. Initial plan had been to admit the patient for Cardizem drip but on arrival to the floor patient's pulse was in the 90s and low 100s. Cardizem drip was held and patient was treated with oral medications. Patient had additional work-up which did reveal a large left-sided pleural effusion. Patient does endorse symptoms of cough, dyspnea on exertion, orthopnea. Echocardiogram performed as an outpatient as part of her atrial fibrillation work-up also has revealed grade 2 diastolic dysfunction. Patient has remained rate controlled since admission with transient increases in pulse to the 110s generally associated with ambulation. Hospital Course Hospital Course: Patient was admitted for atrial fibrillation with rapid ventricular response. By the time patient arrived to the floor pulse rate was under better control. Patient was started on oral metoprolol in addition to her Cardizem. Additional work-up found a moderate-sized left pleural effusion from which the patient was symptomatic with dyspnea on exertion. It was felt that this likely also contributed some to her tachycardia when ambulatory. Decision was made to proceed with left thoracentesis. Patient's Xarelto was held. On October 30 patient underwent left thoracentesis with removal of 800 mL of serosanguineous fluid. Patient tolerated the procedure well. She was monitored routinely and there was no pneumothorax. On the afternoon of October she was discharged home. Patient will follow up in my office early next week with chest x-ray prior to the visit. Patient will follow up with cardiology next week. Adjustments were made in patient's medication to increasing her diltiazem to twice daily and starting metoprolol tartrate twice daily Objective Vital signs: Temp Pulse Resp BP Pulse Ox 97.9 F 70 18 128/56 L 92 L 10/30/21 10:30 10/30/21 17:00 10/30/21 13:30 10/30/21 13:30 10/30/21 13:30 no acute distress - *Routine Respiratory Exam Present: decreased breath sounds (Right base) - *Routine Cardiovascular Exam Present: RRR - *Routine Abdominal Exam Present: soft, normoactive bowel sounds. Absent: tenderness - *Routine Extremities Exam Absent: cyanosis, clubbing, edema Results Labs on day of discharge: Labs from last 24 hours 10/30/21 10/30/21 10:18 08:00 Sodium 136 Potassium 4.4 Chloride 103 Carbon Dioxide 26 Anion Gap 11.4 BUN 10 Creatinine 0.50 L Estimated Creat Clear 87 Estimated GFR 125 Est GFR ( Amer) 151 D Glucose 142 H Calcium 9.1 Total Bilirubin 0.3 AST 26 D ALT 12 D Alkaline Phosphatase 101 Lactate Dehydrogenase 185 L Total Protein 7.1 Albumin 3.5 Globulin 3.6 H Albumin/Globulin Ratio 1.0 L Fluid Source Pleural fluid Fluid Volume 1000 Fluid Appearance Cloudy Fluid RBC (Auto) < 10 Fld Tot Nucleated Cell 1294 Fld Polynuclear WBCs % 7 Fld Mononuclear WBCs % 93 DS: Diagnosis - Discharge Diagnosis (1) Atrial fibrillation with RVR Status: Resolved (2) Pleural effusion, left Status: Acute (3) Diastolic dysfunction, left ventricle Status: Acute (4) DM2 (diabetes mellitus, type 2) Status: Chronic Discharge Plan - Patient Discharge Instructions ACTIVITY: Continue current activity DIET: continue same diet Patient Instructions: Thoracentesis, Pleural Effusion, DI for Thoracentesis, DI for Atrial Fibrillation, DI for Shortness of Breath, DI for Surgical Site Infection, DI for Pleural Effusion - Follow up Plan Follow up with: Kirill Perea MD [Staff Physician]
[2021-10-31 12:16] LABS: Albumin, Body Fluid 2.5 g/dL (Not Estab.); Glucose, Body Fluid 145 mg/dL (.); LD, Body Fluid 112 IU/L (.); Protein, Body Fluid 4.6 g/dL (.)
== END 2021-10-30 17:19 | disposition home or self-care (01) | DRG 310 ==
LOC: 2ND 10-29 09:38 → OB 10-29 15:45
PROVIDERS: Nurse Practitioner Family; Admitting Provider Family Medicine; PCP Family Medicine; Visit Provider Family Medicine
DX: I48.91 Unspecified atrial fibrillation (principal); E11.9 Type 2 diabetes mellitus without complications; I10 Essential (primary) hypertension; Z79.84 Long term (current) use of oral hypoglycemic drugs
CPT/HCPCS: 32555; 71045; 71046; 80048; 80053; 80061; 80076; 82042; 82945; 83615; 83735; 84155; 84439; 84443; 84484; 85025; 87070; 87077; 87186; 87205; 89051; C9803; U0003; U0005

== ENCOUNTER → 2021-11-08 15:13 | Outpatient (CLI) | payer BC, SELFPAY ==
[2021-11-08 16:35] LABS: Blood Urea Nitrogen 9 mg/dl (7-17); Estimated Glomerular Filt Rate 85 ml/min (>60); GFR (African American) 102 ML/MIN (>60)
[2021-11-08 16:43] LABS: NT Pro Brain Natriuretic Pep. 396 pg/mL (0-125)
== END ==
PROVIDERS: Visit Provider Internal Medicine Cardiovascular Disease
DX: R06.00 Dyspnea, unspecified (principal); R06.02 Shortness of breath; R42 Dizziness and giddiness; R00.2 Palpitations; I48.91 Unspecified atrial fibrillation; I10 Essential (primary) hypertension; E11.9 Type 2 diabetes mellitus without complications; E78.5 Hyperlipidemia, unspecified; R94.31 Abnormal electrocardiogram [ECG] [EKG]; Z79.84 Long term (current) use of oral hypoglycemic drugs
CPT/HCPCS: 36415; 82565; 83880; 84520

== ENCOUNTER 2025-02-09 09:39 | Outpatient (CLI) | payer MEDICARE, OTHER, SELFPAY ==
--- NOTE | 2025-02-09 09:43 | MM_ITS ---
PROCEDURE INFORMATION: Exam: MG Bilateral Screening 3D Mammography Exam date and time: 02/09/2025 10:00 AM Age: 64 years old Clinical indication: Screening examination TECHNIQUE: Imaging protocol: Bilateral Screening tomosynthesis and 2D mammography including computer-aided detection (CAD) when performed. COMPARISON: 1. MG MM DIG SCREENING MAMM BI W/CAD 07/19/2021 3:38 PM 2. MG DIG MAMM-SCREEN HU 06/03/2019 1:24 PM FINDINGS: MAMMOGRAPHY: Breast composition: There are scattered areas of fibroglandular density. Mass: None. Architectural distortion: None. Calcifications: No suspicious calcifications. Asymmetric density: None. Skin thickening: None. Axillary adenopathy: None. IMPRESSION: No mammographic evidence of malignancy. Annual screening is recommended unless otherwise clinically indicated. ASSESSMENT: BI-RADS Category 1: Negative.
== END 2025-02-09 23:59 | disposition home or self-care (01) ==
LOC: RAD 09:40
PROVIDERS: PCP Nurse Practitioner; Visit Provider Nurse Practitioner
DX: Z12.31 Encounter for screening mammogram for malignant neoplasm of breast (principal)
CPT/HCPCS: 77063; 77067

== ENCOUNTER 2025-08-30 08:57 | Outpatient (CLI) | payer MEDICARE, OTHER, SELFPAY ==
--- NOTE | 2025-08-30 09:10 | XR_ITS ---
FINAL REPORT CLINICAL HISTORY: Right sided back pain COMPARISON: None FINDINGS: A single view of the abdomen was obtained. There is a nonobstructive bowel gas pattern. There are no abnormally dilated loops of small bowel. There are no abnormal calcifications. There is 20 degrees of lumbar scoliosis convex to the left. A right hip prosthesis is noted. IMPRESSION: Nonobstructive bowel gas pattern. No abnormal calcifications. Reviewed, Interpreted and Dictated by Vin Diggs MD Transcribed by Sharona Juan Authenticated and [facility]
--- OUTSIDE RECORDS SUMMARY | 2025-08-30 09:21 | XMS_ITS | Clinical Summary ---
Author Organization [facility] , [facility] Address [address] [place] [address] Phone Care Team Providers Care Hims Manager Name Role Phone Allyson RONDON, Lalo Gilbert Unavailable [phone] LOVE RONDON, EILEEN Ewing Unavailable [phone] Reason for Visit and Chief Complaint [facility] Problems Includes: Problems addressed during this encounter and other active Problems All Visits Onset Date Resolved Date Provider Condition S tatus Joint Pain Hip Right 03/29/2021 Lalo Valadez MD Active Last Documented On 1 11:01AM ; [facility] Plan of Treatment No Plan of Treatment Recorded Assessments Includes: Assessments from this encounter No Assessments Recorded Medical Equipment - Implanted Devices Includes: Current Devices No Medical Equipment Recorded Medications Includes: Medications discussed during this encounter and other current Medications Current Medications (continue as prescribed) Medrol 4 MG Oral Tablet Therapy Pack 08/05/2024 Prov ider: Kirill Sepulveda PA-C Diagnosis: take as directed Last Documented On 4 9:47AM By Kirill Sepulveda ; [facility] Lexapro 5 MG Oral Tablet 03/29/2021 Provider: Diagnosis: Last Documented On 1 11:28AM By Darby Brewster ; [facility] metFORMIN HCl 500 MG Oral Tablet 03/06/2021 Provider : EILEEN ALEMAN MD Diagnosis: Last Documented On 1 11:28AM By Darby Brewster ; [facility] Simvastatin 40 MG Oral Tablet 02/26/2021 Provider: EILEEN ALEMAN MD Diagnosis: Last Documented On 1 11:28AM By Darby Brewster ; [facility] Lisinopril-hydroCHLOROthiazi de 10-12.5 MG Oral Tablet 05/17/2020 Provider: EILEEN ALEMAN MD Diagnosis: Last Documented On 1 11:28AM By Darby Brewster ; [facility] Medications Administered Includes: Administered Medications from this encounter No Administered Medications Recorded Results Includes: Results discussed during this encounter No Results Recorded For Specified Dates History of Present Illness Includes: History of Present Illness from this encounter No History of Present Illness Recorded Social History No Social History Recorded - Smoking Status Unknown Medical History Includes: Medical History addressed during this encounter No Medical History Recorded Family History Includes: Family History addressed during this encounter No Family History Recorded Review of Systems Includes: Review of Systems from this encounter No Review of Systems Recorded Mental Status Includes: Mental Status from this encounter No Mental Status Recorded Functional Status Includes: Functional Status from this encounter No Functional Status Recorded Physical Exam Includes: Physical Exam from this encounter No Physical Exam Recorded Allergies Includes: Active Allergies Substance Type Reaction Onset Date Resolved Date Statu s Gabapentin Allergy hallucinations 06/05/2021 Act michelle Last Documented On 4 8:40AM ; [facility] Encounters Encounter Provider Location Date Check-In Time Check-Out Time Diagnosis [facility] Lalo Valadez MD Surgery 04/24/20 21 11:37AM 11:59PM Insurance Includes: Active Insurance Policies Plan Name Member ID Group # Subscriber Relationship Effect michelle Dates 1 - Medicare Part B [facility] [id number] Gemma [place] Self 08/30/2023 - Unknown 2 - [employer] [id number] Gemma [place] Self 08/30/2023 - Unknown Clinical Notes Includes: Clinical Notes from this encounter No Clinical Notes Recorded
--- OUTSIDE RECORDS SUMMARY | 2025-08-30 09:21 | XMS_ITS | Clinical Summary ---
Author Organization [facility] Address [address] [place] [address] Care Team Providers Care Frit Maker Name Role Phone Evin Pickering MD Primary Care Provider [phone] Allergies No known active allergies Medications escitalopram (LEXAPRO) 20 MG tablet Take 1 tablet by mouth Every Night. 1 6 Active simvastatin (ZOCOR) 40 MG tablet Take 1 tablet by mouth Every Evening. 0 Active metFORMIN (GLUCOPHAGE) 500 MG tablet Take 1 tablet by mouth Every Night. Active Xarelto 20 MG tabletIndication s:Paroxysmal atrial fibrillation TAKE 1 TABLET BY MOUTH DAILY WITH DINNER. INDICATIONS: ATRIAL FIBRILLATION 90 tablet 3 4 Active sotalol (BETAPACE) 80 MG tabletIndication s:Paroxysmal atrial fibrillation TAKE 1 TABLET BY MOUTH EVERY 12 HOURS 180 tablet 3 5 Active lisinopril (PRINIVIL,ZESTRI L) 20 MG tablet Take 1 tablet by mouth Daily. 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 Paroxysmal atrial fibrillation 12/26/2021 Essential hypertension 12/26/2021 Endometrial cancer 12/11/2021 Cancer Staging:Pathologic:FIGO Stage IB(pT1b, pN0, cM0) - Signed by Heidy Coffey APRN on 12/11/2021 Obesity, Class III, BMI 40-49.9 (morbid obesity) 11/13/2021 Type 2 diabetes mellitus 11/12/2021 Depression 11/12/2021 Pleural effusion, left 11/12/2021 Hyperlipidemia 11/12/2021 Resolved Problems Problem Noted Date Diagnosed Date Resolved Date History of endometrial cancer 12/16/2021 12/16/2021 Atrial fibrillation with RVR 11/12/2021 11/15/2021 Hypomagnesemia 11/12/2021 11/13/2021 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 12/11/2021 Benign-appearing endometrial cells on cervical Pap smear 07/19/2021 12/11/2021 Thickened endometrium 07/19/20212021 History of abnormal uterine bleeding 12/11/2021 Immunizations Immunization Administration Dates Next Due COVID-19 (MODERNA) 1st,2nd,3 rd Dose Monovalent 10/20/2021,02/22/2021,01/23/2021 Fluzone (or Fluarix & Flulav al for VFC) >6mos 09/16/2020 Hepatitis A 11/14/2018 Influenza Injectable Mdck Pf Quad 11/19/2022,06/2021 Family History Medical History Relation Name Comments Heart disease Father Kidney failure Father No Known Problems Maternal Grandfather No Known Problems Maternal Grandmother Diverticulitis Mother Colon cancer Paternal Aunt No Known Problems Paternal Grandfather No Known Problems Paternal Grandmother No Known Problems Sister x2 Relation Name Status Comments Father Maternal Grandfather Maternal Grandmother Mother Paternal Aunt Paternal Grandfather Paternal Grandmother Sister x2 Alive Social History Tobacco Use Types Packs/Day Years Used Date Smoking Tobacco: Never Passive Smoke Exposure: Never Smokeless Tobacco: Never Tobacco Cessation:Counseling Given: Not Answered Alcohol Use Standard Drinks/Week Comments Not Currently 0 (1 standard drink = 0.6 oz pur e alcohol) AUDIT-C Answer Date Recorded Q1: How often do you have a drink containing alcohol? Never 10/22/2024 Q2: How many drinks containi ng alcohol do you have on a typical day when you are drinking? Patient does not drink Q3: How often do you have si x or more drinks on one occasion? Never 10/22/2024 PHQ-2 Answer Date Recorded Retired PHQ-9: Brief Depression Severity Measure Score 0 05/25/2023 Abuse Screen Answer Date Recorded Feels Unsafe at Home or Work/School no 10/22/2024 Feels Threatened by Someone no 10/01 Does Anyone Try to Keep You From Having Contact with Others or Doing Things Outside Your Home? no 10/22/2024 Physical Signs of Abuse Present no 10/22/2024 Housing Stability Answer Date Recorded Current Living Arrangements home 10/01 Potentially Unsafe Housing Conditions Not on saleem e 10/22/2024 Disabilities Answer Date Recorded Difficulty Concentrating, Remembering or Making Decisions no 10/22/2024 Difficulty Managing Errands Independently no 10/22/2024 PHQ-2 Answer Date Recorded Retired PHQ-9: Brief Depression Severity Measure Score 0 04/20/2024 Comments No Sex and Gender Information Value Date Recorded Sex Assigned at Not on file Legal Sex Female 1:03 PM EST Gender Identity Not on file Sexual Orientation Not on file Last Filed Vital Signs Vital Sign Reading Time Taken Comments Blood Pressure 140/78 04/20/2025 2:23 PM EDT Pulse 58 04/20/2025 2:23 PM EDT Temperature 36.2 C (97.1 F) 04/20/2025 2:23 PM EDT Respiratory Rate 16 04/20/2025 2:23 PM EDT Oxygen Saturation 99% 04/20/2025 2:23 PM EDT Inhaled Oxygen Concentration - - Weight 103 kg (226 lb 4.8 oz) 04/20/2025 2:23 PM EDT Height 157.5 cm (5' 2 ) 04/20/2025 2:23 PM EDT Body Mass Index 41.39 04/20/2025 2:23 PM EDT Plan of Treatment Upcoming Encounters Date Type Department Care Team (Late st Contact Info) Description 10/23/2025 2:30 PM EST Office Visit [facility]YNECOLOG[facility]COL[facility]Y [address] [facility] [address] [place] [address] Laura Terrazas APRN [address] [place] [address] 12/12/2025 3:15 PM EST Office Visit [facility] CARDIOLOGY [address] [facility] [address] [place] [address] Kody Loyola MD [address] [facility] [address] [place] [address] Health Maintenance Due Date Last Done Comments DXA SCAN 1958 DIABETIC EYE EXAM 1968 DIABETIC FOOT EXAM 1968 URINE MICROALBUMIN-CREATININ E RATIO (uACR) 1968 TDAP/TD VACCINES (1 - Tdap) 1977 COLOGUARD 2003 COLON CANCER SCREENING 5 YEA R SIGMOIDOSCOPY 2003 CT COLONOGRAPHY 2003 FECAL OCCULT BLOOD TEST 2003 FIT Testing (1 year) 2003 ZOSTER VACCINE (1 of 2) 2008 MAMMOGRAM 09/30/2017 09/30/2015 ANNUAL WELLNESS VISIT 11/16/2017 HEPATITIS C SCREENING 11/16/2017 Pneumococcal Vaccine 50+ (2 of 2 - PCV) 10/30/2021 10/30/2020 LIPID PANEL 11/13/2022 11/13/2021, 11/13/2021 HEMOGLOBIN A1C 04/21/2025 10/22/2024, 10/30, 08/20/2021 INFLUENZA VACCINE 06/30/2025 11/19/2022, , 09/16/2020 COVID-19 Vaccine ( season) 2025 10/20/2021, 02/22/2021, 01/23/2021 COLONOSCOPY 05/03/2029 05/03/2024 COLORECTAL CANCER SCREENING 05/03/2029 Medical Devices Implanted Type Area Division Field Inspector Device Identifier Shelf Expiration Date Model / Serial / Lot Reload [employer] End[employer] Gst 45mm Wht - [id number] Implanted:Qty: 1 on 10/22/2024 by Juan Hernandez MD at [facility] Implant N/A: Abdomen [employer] 12/30/2026 [id number] / / [id number] Implant Description:Right hip replac ement Procedures Procedure Name Priority Date/Time Associated Diagnosis Comments HEMOGLOBIN A1C Add-On 10/22/2024 11:16 AM EST SCANNED - COLONOSCOPY 05/03/2024 LIPID PANEL Routine 11/13/2021 5:35 AM EST from Last 3 Months or Most Recently Relevant to Health Maintenance Results * (ABNORMAL) Hemoglobin A1c (10/22/2024 11:16 AM EST) Hemoglobin A1C 6.90(H) 4.80 - 5.60 % 10/22/2024 5:23 PM EST [facility] Blood Venipuncture / Unknown 10/22/2024 11:16 AM EST 10/22/2024 11:22 AM EST Narrative [facility] - 10/22/2024 5:23 PM EST Hemoglobin A1C Ranges: Increased Risk for Diabetes 5.7% to 6.4% Diabetes >= 6.5% Diabetic Goal < 7.0% Sameer Ramirez DO LAB BLOOD ORDERABLES Oralia l Result [facility]
[address] [place] [address], * Colonoscopy, Scan (05/03/2024) Ken Nolan MD CHART REVIEW TABS Final Result * (ABNORMAL) Lipid Panel (11/13/2021 5:35 AM EST) Total Cholesterol 108 0 - 200 mg/dL 11/13/2021 8:08 AM EST [facility] Triglycerides 84 0 - 150 mg/dL 11/13/2021 8:08 AM EST [facility] HDL Cholesterol 31(L) 40 - 60 mg/dL 11/13/2021 8:08 AM EST [facility] LDL Cholesterol 60 0 - 100 mg/dL 11/13/2021 8:08 AM EST [facility] VLDL Cholesterol 17 5 - 40 mg/dL 11/13/2021 8:08 AM EST [facility] LDL/HDL Ratio 1.94 11/13/2021 8:08 AM EST [facility] Blood Venipuncture / Unknown 11/13/2021 5:35 AM EST 11/13/2021 6:21 AM EST [facility] - 11/13/2021 8:08 AM EST Cholesterol Reference Ranges (U.S. Department of Health and Human Services ATP III Classifications) Desirable <200 mg/dL Borderline High 200-239 mg/dL High Risk >240 mg/dL Triglyceride Reference Ranges (U.S. Department of Health and Human Services ATP III Classifications) Normal <150 mg/dL Borderline High 150-199 mg/dL High 200-499 mg/dL Very High >500 mg/dL HDL Reference Ranges (U.S. Department of Health and Human Services ATP III Classifcations) Low <40 mg/dl (major risk factor for CHD) High >60 mg/dl ('negative' risk factor for CHD) LDL Reference Ranges (U.S. Department of Health and Human Services ATP III Classifcations) Optimal <100 mg/dL Near Optimal 100-129 mg/dL Borderline High 130-159 mg/dL High 160-189 mg/dL Very High >189 mg/dL Shelby Rudd PA-C LAB BLOOD ORDERABLES Final R esult [facility]
[address] [place] [address], from Last 3 Months or Most Recently Relevant to Health Maintenance Insurance MEDICARE A & B [employer] [place] [id number] Advance Directives * CPR (Attempt to Resuscitate) (Latest Code Status on File) Date Activated Date Inactivated Comments 10/22/2024 4:09 PM 10/24/2024 2:12 PM Question Answer Comments Code Status (Patient has no pulse and is not breathing): CPR (Attempt to Resuscitate) Medical Interventions (Patie nt has pulse or is breathing): Full Support * CPR (Attempt to Resuscitate) Date Activated Date Inactivated Comments 11/12/2021 8:23 PM 11/15/2021 9:04 PM Question Answer Comments Code Status (Patient has no pulse and is not breathing): CPR (Attempt to Resuscitate) Medical Interventions (Patie nt has pulse or is breathing): Full Support Level Of Support Discussed With: Patient Care Teams Frit Maker Relationship Specialty Start Date End Date Evin Pickering MD [address] [place] [address] PCP - General 11/29/15
--- OUTSIDE RECORDS SUMMARY | 2025-08-30 09:21 | XMS_ITS | Clinical Summary ---
Author Organization [facility] Address [address] [place] [address] Phone Care Team Providers Care Refrigerating Machine Operator Name Role Phone Allyson RONDON, Lalo Gilbert Unavailable [phone] LOVE RONDON, EILEEN Ewing Unavailable [phone] Reason for Visit and Chief Complaint The Chief Complaint is: LEFT HIP PAIN Problems Includes: Problems addressed during this encounter and other active Problems All Visits Onset Date Resolved Date Provider Condition S tatus Joint Pain Hip Right 03/29/2021 Lalo Iglesias MD Active Last Documented On 11:01AM ; [facility] Plan of Treatment - Patient screened for future fall risk: documentation of any fall with injury in past year - Last Documented On 08/05/2024 9:43AM ; [facility] Fall Risk Assessment: This patient has been identified as a fall risk. Balance/gait along with postural blood pressure, vision and home fall hazards have been assessed. Medications have been reviewed, and recommendations made with regard to contributing factors for future falls. Plan of care: Consideration of vitamin D supplementation along with balance and strength training with consideration for formal physical therapy has been discussed with the patient. - Last Documented On 08/05/2024 9:43AM ; [facility] Patient comes in today with a three-month history of left hip pain. Pain seems to be more located to the lateral side of the hip over the gluteal tendon structures. Range of motion somewhat stiff with mild arthritis noted on x-ray. Recommended physical therapy eval and treat and a Medrol Dosepak. Follow up in the office in 2 months if no better consider steroid injection - Last Documented On 08/05/2024 9:43AM ; [facility] Instructions to patient Lose weight Last Documented On 9:23AM ; [facility] Assessments Includes: Assessments from this encounter Findings - Overweight - Last Documented On 08/05/2024 9:43AM ; [facility] Left hip bursitis, gluteal tendonitis - Last Documented On 08/05/2024 9:43AM ; [facility] Instructions Includes: Instructions from this encounter Instructions to patient Lose weight Last Documented On 4 9:23AM ; [facility] Medical Equipment - Implanted Devices Includes: Current Devices No Medical Equipment Recorded Medications Includes: Medications discussed during this encounter and other current Medications New / Renewed during this visit Kirill Sepulveda PA-C on 08/05/2024 Medrol 4 MG Oral Tablet Therapy Pack Provider: Kirill Diaz 5 day supply: 21 tablet, 0 refills Diagnosis: take as directed Pharmacy: [facility]/pharmacy # [id number] - [address] [facility], [id number] - Last Documented On 4 9:47AM By Kirill Sepulveda ; [facility] Current Medications (continue as prescribed) Lexapro 5 MG Oral Tablet 03/29/2021 Provider: Diagnosis: Last Documented On 11:28AM By Darby Brewster ; [facility] metFORMIN HCl 500 MG Oral Tablet 03/06/2021 Provider : EILEEN ALEMAN MD Diagnosis: Last Documented On 11:28AM By Darby Brewster ; [facility] Simvastatin 40 MG Oral Tablet 02/26/2021 Provider: EILEEN ALEMAN MD Diagnosis: Last Documented On 11:28AM By Darby Brewster ; [facility] Lisinopril-hydroCHLOROthiazi de 10-12.5 MG Oral Tablet 05/17/2020 Provider: EILEEN ALEMAN MD Diagnosis: Last Documented On 11:28AM By Darby Brewster ; [facility] Past Medications on file Cephalexin 500 MG Oral Capsule 01/15/2024 - 01/16/2024 Provider: Lalo montero MD Diagnosis: take as directed take all fo ur tabs one hour prior to procedure Last Documented On 4 12:48PM By Carlos Alberto Iglesias ; [facility] Neurontin 300 MG Oral Capsule 04/23/2021 - 07/22/2021 Provider: Lalo montero MD Diagnosis: 1 every bedtime * DO NOT FILL UNTIL 04-24-21 Last Documented On 9:52AM By Carlos Alberto Iglesias ; [facility] Ultram 50 MG Oral Tablet 04/23/2021 - 04/28/2021 Provider: Lalo montero MD Diagnosis: 1-2 po q6h prn pain DO NOT FILL UNTIL 04-24-21 Last Documented On 9:52AM By Carlos Alberto Iglesias ; [facility] oxyCODONE HCl 5 MG Oral Tablet 04/23/2021 - 04/28/2021 Provider: Lalo montero MD Diagnosis: 1-2 po q 4-6h DO NOT FILL UNTIL 04-24-21 Last Documented On 9:52AM By Carlos Alberto Iglesias ; [facility] Ondansetron HCl 4 MG Oral Tablet 04/23/2021 - 04/28/2021 Provider: Lalo Iglesias MD Diagnosis: 1tkh1-3c DO NOT FILL UNTIL 04-24-21 Last Documented On 1 9:43AM By Carlos Alberto Iglesias ; [facility] Acetaminophen 500 MG Oral Tablet 04/23/2021 - 05/23/2021 Provider: Lalo Iglesias MD Diagnosis: 2 three times a day DO NOT FILL UNTIL 04-24-21* * Last Documented On 1 9:42AM By Carlos Alberto Iglesias ; [facility] Cefadroxil 500 MG Oral Capsule 04/23/2021 - 04/26/2021 Provider: Lalo montero MD Diagnosis: twice a day DO NOT FILL UNTIL 04-24-21 Last Documented On 9:42AM By Carlos Alberto Iglesias ; [facility] Colace 100 MG Oral Capsule 04/23/2021 - 07/22/2021 Provider: Lalo montero MD Diagnosis: 1-2 tabs daily DO NOT FILL UNTIL 04-24-21 Last Documented On 9:43AM By Carlos Alberto Iglesias ; [facility] Meloxicam 15 MG Oral Tablet 04/23/2021 - 05/07/2021 Provider: Lalo montero MD Diagnosis: once a day DO NOT FILL UNTIL 04-24-21 Last Documented On 9:43AM By Carlos Alberto Iglesias ; [facility] Medications Administered Includes: Administered Medications from this encounter No Administered Medications Recorded Vital Signs Includes: Vital Signs from this encounter Vital Name 08/05/2024 09:03A Height (in) 62 Weight (lb) 230 Body Mass Index 42.1 Body Surface Area 2 Note: SV Last Documented: On 08/05/2024 9:03AM ; [facility] Results Includes: Results discussed during this encounter No Results Recorded For Specified Dates History of Present Illness Includes: History of Present Illness from this encounter DIAZ Atkinson is a 63 year old female. - Symptoms improves w/ sitting worse w/ walking catching / popping. - Allergy list reviewed - Problem list reviewed - Medication list reviewed - Previous history of new onset pain Injury is not work related or an automotive accident - Pain is occasional (25% of the time) - Patient pain level from 1-10: 5 - No previous treatment. - - Review of medications documented Medications used for this condition:OTC Extra Strength Tylenol Social History Description Last Updated No caffeine use 08/05/2024 Last Documented On 4 9:43AM ; [facility] No recent change in diet 08/05/2024 Last Documented On 4 9:43AM ; [facility] Not a current smoker. 08/05/2024 Last Documented On 4 9:43AM ; [facility] Not exercising regularly 08/05/2024 Last Documented On 4 9:43AM ; [facility] Not using alcohol 08/05/2024 Last Documented On 4 9:43AM ; [facility] Not using drugs 08/05/2024 Last Documented On 4 9:43AM ; [facility] Smoking Status Unknown Procedures and Surgical History Surgical History Last Updated History of hysterectomy 08/05/2024 Last Documented On 4 9:43AM ; [facility] History of total hip replacement 024 Last Documented On 4 9:43AM ; [facility] Medical History Includes: Medical History addressed during this encounter Description Last Updated History of diabetes mellitus 08/05/2024 Last Documented On 4 9:43AM ; [facility] History of Hypertension 08/05/2024 Last Documented On 4 9:43AM ; [facility] Family History Includes: Family History addressed during this encounter Description Last Updated Paternal history of family history of he art disease 08/05/2024 Last Documented On 4 9:43AM ; [facility] Review of Systems Includes: Review of Systems from this encounter Systemic: Not feeling tired, no recent weight loss, and no recent weight gain. Head: No headache and no sinus pain. Eyes: No vision problems, no Cataracts, no Glasses/Contacts, and no Glaucoma. Otolaryngeal: No hearing loss and no tinnitus. Cardiovascular: No chest pain or discomfort and no palpitations. Hypertension. No High Cholesterol. Pulmonary: No daytime asthma symptoms and no chronic cough. No wheezing. Gastrointestinal: No heartburn and no abdominal pain. No Indigestion, no Peptic Ulcer, no GI Stomach Bleed, no Ulcers, and no Acid Reflux. Endocrine: No hot flashes, no muscle weakness, no Diabetes, no Hypothyroid, and no Hyperthyroid. Hematologic: No easy bleeding, no tendency for easy bruising, and no Anemia. Musculoskeletal: No Arthritis and no lower back pain. No soft tissue swelling and no localized joint pain. Neurological: No dizziness, no convulsions, and no numbness. Psychological: No anxiety, no emotional lability, no depression, and no insomnia. Not crying for no reason. Skin: No dry skin. No Ulcers, no Scars, and no rash. Allergic and Immunologic: No complaint of seasonal allergic reaction. Mental Status Includes: Mental Status from this encounter Description No anxiety Functional Status Includes: Functional Status from this encounter No Functional Status Recorded Physical Exam Includes: Physical Exam from this encounter Allergies Includes: Active Allergies Substance Type Reaction Onset Date Resolved Date Statu s Gabapentin Allergy hallucinations 06/05/2021 Act michelle Last Documented On 4 8:40AM ; [facility] Encounters Encounter Provider Location Date Check-In Time Check-Out Time Diagnosis NEW PROBLEM/EST PT Kirill Sepulveda PA-C [facility] 08/05/20 24 8:40AM 9:35AM Overweight Insurance Includes: Active Insurance Policies Plan Name Member ID Group # Subscriber Relationship Effect michelle Dates 1 - Medicare Part [facility] [id number] Brandy Atkinson Self 08/30/2023 - Unknown 2 - Volt [id number] Brandy Atkinson Self 08/30/2023 - Unknown Clinical Notes Includes: Clinical Notes from this encounter * Progress note Date Encounter Last Documented by 08/05/2024 NEW PROBLEM/EST PT Last document ed on 08/05/2024; 9:43 AM, Kirill Sepulveda PA-C; [facility] Active Problems & Conditions - Joint Pain in the Right Hip Subjective Which knee or hip hurts the most? Where on the hip or knee? LEFT HIP WORSE Have you had prior knee or hip surgery? RIGHT MASSIEL WITH DR IGLESIAS IN 2020 What medicines have you taken for the pain? NO, LEFT HIP FEELS LIKE HER RIGHT ONE DID BEFORE REPLACEMENT What injections have you tried for the pain? NO Do you need a cane or walker to ambulate? NO Have you improved your shoes or tried a brace? NO Have you tried to lose weight? NO Chief Complaint The Chief Complaint is: LEFT HIP PAIN. Referred Here Referred by. History of Present Illness Brandy Atkinson is a 63 year old female. - Symptoms improves w/ sitting worse w/ walking catching / popping. - Allergy list reviewed - Problem list reviewed - Medication list reviewed - Previous history of new onset pain Injury is not work related or an automotive accident - Pain is occasional (25% of the time) - Patient pain level from 1-10: 5 - No previous treatment. - - Review of medications documented Medications used for this condition:OTC Extra Strength Tylenol Current Medication - Lexapro 5 MG Oral Tablet use as directed 0 days, 0 refills - Lisinopril-hydroCHLOROthiazide 10-12.5 MG Oral Tablet 90 days, 0 refills - metFORMIN HCl 500 MG Oral Tablet 90 days, 0 refills - Simvastatin 40 MG Oral Tablet 90 days, 0 refills Past Medical/Surgical History Diagnoses: Hypertension. Diabetes mellitus Surgical: - Hysterectomy - Total hip replacement Social History Not a current smoker. Current diet: No recent change in diet. Caffeine use: No caffeine use. Alcohol: Not using alcohol. Drug Use: Not using drugs. Habits: Not exercising regularly. Allergies - Gabapentin Reaction: hallucinations Family History Paternal: Heart disease Review Of Systems Systemic: Not feeling tired, no recent weight loss, and no recent weight gain. Head: No headache and no sinus pain. Eyes: No vision problems, no Cataracts, no Glasses/Contacts, and no Glaucoma. Otolaryngeal: No hearing loss and no tinnitus. Cardiovascular: No chest pain or discomfort and no palpitations. Hypertension. No High Cholesterol. Pulmonary: No daytime asthma symptoms and no chronic cough. No wheezing. Gastrointestinal: No heartburn and no abdominal pain. No Indigestion, no Peptic Ulcer, no GI Stomach Bleed, no Ulcers, and no Acid Reflux. Endocrine: No hot flashes, no muscle weakness, no Diabetes, no Hypothyroid, and no Hyperthyroid. Hematologic: No easy bleeding, no tendency for easy bruising, and no Anemia. Musculoskeletal: No Arthritis and no lower back pain. No soft tissue swelling and no localized joint pain. Neurological: No dizziness, no convulsions, and no numbness. Psychological: No anxiety, no emotional lability, no depression, and no insomnia. Not crying for no reason. Skin: No dry skin. No Ulcers, no Scars, and no rash. Allergic and Immunologic: No complaint of seasonal allergic reaction. Physical Findings - Vitals taken 08/05/2024 09:03 am SV Height 62 in Weight 230 lbs Body Mass Index 42.1 kg/m2 Body Surface Area 2 m2 Patient alert and oriented Overweight Antalgic gait LLD -5mm Skin clean, dry and intact Moderate TTP greater trochanter, gluteus medius musculature Left hip Flexion 110-, internal rotation 20- external rotation 45- Straight leg raise [without difficulty] Abductor Strength [5/5] Strenght [5/5] TA, Gastroc, Quad Sensation intact to light touch throughout Palpable puslses DP/PT Tests Three views of the left hip taken today demonstrates well-maintained joint space with the femoral head and acetabulum. Some joint space thinning. Osteophyte noted on the superior aspect of the acetabulum Assessment - Overweight Left hip bursitis, gluteal tendonitis Counseling/Education - Tobacco non-user - Use of tobacco assessment performed - Lose weight Plan StartCited - Other Medrol 4 MG tablet take as directed, 5 days, 0 refills EndCited - Patient screened for future fall risk: documentation of any fall with injury in past year Fall Risk Assessment: This patient has been identified as a fall risk. Balance/gait along with postural blood pressure, vision and home fall hazards have been assessed. Medications have been reviewed, and recommendations made with regard to contributing factors for future falls. Plan of care: Consideration of vitamin D supplementation along with balance and strength training with consideration for formal physical therapy has been discussed with the patient. Patient comes in today with a three-month history of left hip pain. Pain seems to be more located to the lateral side of the hip over the gluteal tendon structures. Range of motion somewhat stiff with mild arthritis noted on x-ray. Recommended physical therapy eval and treat and a Medrol Dosepak. Follow up in the office in 2 months if no better consider steroid injection Notes This dictation was done with voice recognition software and may contain errors and omissions. Care Team - EILEEN ALEMAN MD - SPLITTER OPERATOR
--- OUTSIDE RECORDS SUMMARY | 2025-08-30 09:21 | XMS_ITS | Clinical Summary ---
Author Organization [facility] , [facility] Address [address] [place] [address] Phone Care Team Providers Care Senior Manufacturing Supervisor Name Role Phone Allyson RONDON, Lalo Giblert Unavailable + [phone] LOVE RONDON, EILEEN Ewing Unavailable [phone] Reason for Visit and Chief Complaint The Chief Complaint is: right hip pain Problems Includes: Problems addressed during this encounter and other active Problems All Visits Onset Date Resolved Date Provider Condition S tatus Joint Pain Hip Right 03/29/2021 Lalo Valadez MD Active Last Documented On 11:01AM ; [facility] Plan of Treatment Follow up: 12 months with xoa - Last Documented On 06/06/2021 9:20AM ; [facility] Instructions to patient Lose weight Last Documented On 12:49PM ; [facility], [facility] Assessments Includes: Assessments from this encounter Findings The patient is very pleased with their hip surgery. No complaints today. Encourage them to continue strengthening and mobility exercises at home. Plan for follow up One year postop for x-ray and exam - Last Documented On 06/06/2021 9:20AM ; [facility], [facility] Instructions Includes: Instructions from this encounter Instructions to patient Lose weight Last Documented On 12:49PM ; [facility], [facility] Medical Equipment - Implanted Devices Includes: Current Devices No Medical Equipment Recorded Medications Includes: Medications discussed during this encounter and other current Medications Current Medications (continue as prescribed) Medrol 4 MG Oral Tablet Therapy Pack 08/05/2024 Prov ider: Kirill Sepulveda PA-C Diagnosis: take as directed Last Documented On 4 9:47AM By Kirill Sepulveda ; [facility] Lexapro 5 MG Oral Tablet 03/29/2021 Provider: Diagnosis: Last Documented On 1 11:28AM By Darby Brewster ; [facility], [facility] metFORMIN HCl 500 MG Oral Tablet 03/06/2021 Provider : EILEEN ALEMAN MD Diagnosis: Last Documented On 1 11:28AM By Darby Brewster ; [facility], [facility] Simvastatin 40 MG Oral Tablet 02/26/2021 Provider: EILEEN ALEMAN MD Diagnosis: Last Documented On 1 11:28AM By Darby Brewster ; [facility], [facility] Lisinopril-hydroCHLOROthiazi de 10-12.5 MG Oral Tablet 05/17/2020 Provider: EILEEN ALEMAN MD Diagnosis: Last Documented On 1 11:28AM By Darby Brewster ; [facility], [facility] Past Medications on file Cephalexin 500 MG Oral Capsule 01/15/2024 - 01/16/2024 Provider: Lalo montero MD Diagnosis: take as directed take all fo ur tabs one hour prior to procedure Last Documented On 4 12:48PM By Carlos Alberto Valadez ; [facility], [facility] Neurontin 300 MG Oral Capsule 04/23/2021 - 07/22/2021 Provider: Lalo montero MD Diagnosis: 1 every bedtime * DO NOT FILL UNTIL 04-24-21 Last Documented On 1 9:52AM By Carlos Alberto Valadez ; [facility], [facility] Ultram 50 MG Oral Tablet 04/23/2021 - 04/28/2021 Provider: Lalo montero MD Diagnosis: 1-2 po q6h prn pain DO NOT FILL UNTIL 04-24-21 Last Documented On 1 9:52AM By Carlos Alberto Valadez ; [facility], [facility] oxyCODONE HCl 5 MG Oral Tablet 04/23/2021 - 04/28/2021 Provider: Lalo montero MD Diagnosis: 1-2 po q 4-6h DO NOT FILL UNTIL 04-24-21 Last Documented On 1 9:52AM By Carlos Alberto Valadez ; [facility], [facility] Ondansetron HCl 4 MG Oral Tablet 04/23/2021 - 04/28/2021 Provider: Lalo Valadez MD Diagnosis: [id number] DO NOT FILL UNTIL 04-24-21 Last Documented On 9:43AM By Carlos Alberto Valadez ; [facility], [facility] Acetaminophen 500 MG Oral Tablet 04/23/2021 - 05/23/2021 Provider: Lalo Valadez MD Diagnosis: 2 three times a day DO NOT FILL UNTIL 04-24-21* * Last Documented On 9:42AM By Carlos Alberto Valadez ; [facility], [facility] Cefadroxil 500 MG Oral Capsule 04/23/2021 - 04/26/2021 Provider: Lalo montero MD Diagnosis: twice a day DO NOT FILL UNTIL 04-24-21 Last Documented On 9:42AM By Carlo sAlberto Valadez ; [facility], [facility] Colace 100 MG Oral Capsule 04/23/2021 - 07/22/2021 Provider: Lalo montero MD Diagnosis: 1-2 tabs daily DO NOT FILL UNTIL 04-24-21 Last Documented On 9:43AM By Carlos Alberto Valadez ; [facility], [facility] Meloxicam 15 MG Oral Tablet 04/23/2021 - 05/07/2021 Provider: Lalo montero MD Diagnosis: once a day DO NOT FILL UNTIL 04-24-21 Last Documented On 9:43AM By Carlos Alberto Valadez ; [facility], [facility] Medications Administered Includes: Administered Medications from this encounter No Administered Medications Recorded Vital Signs Includes: Vital Signs from this encounter Vital Name 06/05/2021 12:50P Blood Pressure Sitting (mmHg) 120/68 Pulse Rate-Sitting (bpm) 75 Height (in) 62 Weight (lb) 225 Body Mass Index (kg/m2) 41.2 Body Surface Area (m2) 2.0 Note: rj Last Documented: On 06/05/2021 1:14PM ; [facility], [facility] Results Includes: Results discussed during this encounter No Results Recorded For Specified Dates History of Present Illness Includes: History of Present Illness from this encounter DIAZ Atkinson is a 60 year old female. - Allergy list reviewed - Medication reconciliation performed - Medication list reviewed with patient Social History Description Last Updated No caffeine use 08/05/2024 Last Documented On 12:49PM ; [facility], [facility] Not exercising regularly 08/05/2024 Last Documented On 12:49PM ; [facility] Not using alcohol 08/05/2024 Last Documented On 12:49PM ; [facility] Not using drugs 08/05/2024 Last Documented On 1 12:49PM ; [facility], [facility] Non-smoker 03/29/2021 Last Documented On 12:49PM ; [facility], [facility] No recent change in diet 03/29/2021 Last Documented On 12:49PM ; [facility], [facility] Not a current smoker. 03/29/2021 Last Document[facility] On 1 12:49PM ; [facility] Smoking Status Unknown Procedures and Surgical History Includes: Procedures from this encounter Procedures Code Diagnosis Performing Provider Service L ocation Service Date use of tobacco assessment performed 1000F Last Documented On 1 12:49PM ; [facility] an X-ray was performed [address]4055 Last Documented On 12:49PM ; [facility] Medical History Includes: Medical History addressed during this encounter Description Last Updated History of diabetes mellitus 08/05/2024 Last Documented On 1 12:49PM ; [facility] No recent immunization for flu Last Documented On 1 12:49PM ; [facility] Past Surgical History: eardrum repair Last Documented On 1 12:49PM ; [facility] Recent immunization for pneumococcal pne umonia 03/29/2021 Last Documented On 12:49PM ; [facility] Family History Includes: Family History addressed during this encounter Description Last Updated No significant family history 03/29/2021 Last Documented On 12:49PM ; [facility] Review of Systems Includes: Review of Systems from this encounter Systemic: Not feeling tired, no recent weight loss, and no recent weight gain. Head: No headache and no sinus pain. Eyes: No vision problems and no Cataracts. Glasses/Contacts. No Glaucoma. Otolaryngeal: Hearing loss. No tinnitus. Cardiovascular: No chest pain or discomfort, no palpitations, no Hypertension, and no High Cholesterol. Pulmonary: No daytime asthma symptoms and no chronic cough. No wheezing. Gastrointestinal: No heartburn and no abdominal pain. No Indigestion, no Acid Reflux, no Peptic Ulcer, no GI Stomach Bleed, and no Ulcers. Endocrine: No hot flashes, no muscle weakness, no Diabetes, no Hypothyroid, and no Hyperthyroid. Hematologic: No easy bleeding, no tendency for easy bruising, and no Anemia. Musculoskeletal: Arthritis. No lower back pain. No soft tissue swelling [...] michelle Last Documented On 4 8:40AM ; [facility] Encounters Encounter Provider Location Date Check-In Time Check-Out Time Diagnosis Post Op Lalo Valadez MD [facility] 06/05/20 21 12:37PM 1:28PM Insurance Includes: Active Insurance Policies Plan Name Member ID Group # Subscriber Relationship Effect michelle Dates 1 - Medicare Part B [facility] [id number] Gemma [place] Self 08/30/2023 - Unknown 2 - [employer] [id number] Gemma [place] Self 08/30/2023 - Unknown Clinical Notes Includes: Clinical Notes from this encounter No Clinical Notes Recorded
--- OUTSIDE RECORDS SUMMARY | 2025-08-30 09:21 | XMS_ITS | Clinical Summary ---
Author Organization [facility] , [facility] Address [address] [place] [address] Phone Care Team Providers Care Mathematical Physicist Name Role Phone Allyson RONDON, Lalo Gilbert Unavailable [phone] EILEEN ALEMAN MD Unavailable [phone] Reason for Visit and Chief Complaint [Patient Encounter] Problems Includes: Problems addressed during this encounter and other active Problems All Visits Onset Date Resolved Date Provider Condition S tatus Joint Pain Hip Right 03/29/2021 Lalo Valadez MD Active Last Documented On 1 11:01AM ; [facility], [facility] Plan of Treatment No Plan of Treatment [...] On 4 9:47AM By Kirill Sepulveda ; [facility] Lexapro 5 MG Oral Tablet 03/29/2021 Provider: Diagnosis: Last Documented On 1 11:28AM By Darby Brewster ; [facility], [facility] metFORMIN HCl 500 MG Oral Tablet 03/06/2021 Provider : EILEEN ALEMAN MD Diagnosis: Last Documented On 1 11:28AM By Darby Brewster ; [facility] Simvastatin 40 MG Oral Tablet 02/26/2021 Provider: EILEEN ALEMAN MD Diagnosis: Last Documented On 1 11:28AM By Darby Brewster ; [facility], [facility] Lisinopril-hydroCHLOROthiazi de 10-12.5 MG Oral Tablet 05/17/2020 Provider: EILEEN ALEMAN MD Diagnosis: Last Documented On 1 11:28AM By Darby Brewster ; [facility] Medications Administered Includes: Administered Medications [...] michelle Last Documented On 4 8:40AM ; [facility], [facility] Encounters Encounter Provider Location Date Check-In Time Check-Out Time Diagnosis [Patient Encounter] Lalo Valadez MD 1 4:44PM 11:59PM Insurance Includes: Active Insurance Policies Plan Name Member ID Group # Subscriber Relationship Effect michelle Dates 1 - Medicare Part B [facility] [id number] Gemma [place] Self 08/30/2023 - Unknown 2 - [employer] [id number] Gemma [place] Self 08/30/2023 - Unknown Clinical Notes Includes: Clinical Notes from this encounter No Clinical Notes Recorded
--- OUTSIDE RECORDS SUMMARY | 2025-08-30 09:22 | XMS_ITS ---
Care Plan - [facility], [facility] Created on: August 30, 2025 Brandy Atkinson : 1960 Sex: Female Author Organization [facility] , [facility] Address [address] [place] [address] Phone Care Team Providers Care Adaptive Physical Education Teacher Name Role Phone Allyson RONDON, Lalo Gilbert Unavailable [phone] LOVE RONDON, EILEEN Ewing Unavailable [phone]
--- OUTSIDE RECORDS SUMMARY | 2025-08-30 09:22 | XMS_ITS ---
Author Organization [facility] Address [address] [place] [address] Care Team Providers Care Supervisor [employer] Name Role Phone Evin Pickering MD Primary Care Provider [phone] Active Problems Problem Noted Date Diagnosed Date Appendicitis 10/22/2024 Tachycardia-bradycardia 03/22/2024 Gross hematuria 07/03/2023 Vaginal bleeding 07/03/2023 director long term care current use of antiarrhythmic drug 08/2022 Paroxysmal atrial fibrillation 12/26/2021 Essential hypertension 12/26/2021 Endometrial cancer 12/11/2021 Cancer Staging:Pathologic:FIGO Stage IB(pT1b, pN0, cM0) - Signed by Heidy Coffey APRN on 12/11/2021 Obesity, Class III, BMI 40-49.9 (morbid obesity) 11/13/2021 Type 2 diabetes mellitus 11/12/2021 Depression 11/12/2021 Pleural effusion, left 11/12/2021 Hyperlipidemia 11/12/2021 Current Treatment and Therapy Plans No current plan information found. Past Treatment and Therapy Plans No past plan information found. Treatment Summaries Endometrial cancer* Images from the original note were not included. Endometrial Cancer Survivorship Plan General Information Patient name Brandy Atkinson Date of 1960 Phone Email No e-mail address on record Cancer Treatment Team Provider Phone numbers Care Team Provider: Evin Pickering MD, ([phone]) Care Team Provider: Heidy Coffey APRN, ([phone]) Care Team Provider: Swetha Hatch MD, ([phone]) Post Treatment Care Team Primary Care Physician Evin Pickering MD [address] [facility] [address] Background Information Family oncology history Cancer-related family history includes Colon cancer in her paternal aunt. Genetic Referral Referral: No Testing results: MMR intact on surgical pathology. No further genetics needed. Cancer Diagnosis Information Diagnosis Endometrial cancer (HCC) Diagnosis date 08/22/2021 Staging information Stage IB Grade Grade I Histology Endometrioid Adenocarcinoma Tumor marker at [facility] N/A Initial Surgery Yes, 08/22/2021 Procedure Type 1 radical robotic-assisted total laparoscopic hysterectomy, bilateral salpingo-oophorectomy, and bilateral sentinel lymph node dissection Significant Pathology grade 1 endometrioid carcinoma, invasive into >50% (9/15 mm) of the myometrium. No lymphvascular invasion. Nodes negative. All other structures negative. MMR intact. Neoadjuvant Chemotherapy N/A Regimen Adjuvant Chemotherapy No Regimen Radiation Therapy No Regimen Treatment on Clinical Trial N/A Complications / Modifications None Completion of Primary Therapy Date: 08/22/2021 (surgery date) Disease Status Complete Clinical Response / No Evidence of Disease Persistent Treatment-Associated Adverse Effects at Completion of Therapy It is important to recognize that not every woman experiences the following adverse events after treatment. You may not have any of these issues, a few, or many adverse effects. Experiences are highly variable. Please discuss any adverse effects of cancer treatment with your cancer care team. []After Surgical Therapy Menopausal symptoms: hot flashes, night sweats, irritability, insomnia, and vaginal dryness may occur. See your health care provider about non-medication recommendations and medication-based treatments. Leg swelling: Minimal to pronounced lower leg swelling can occur. Symptom control with compression hose, lymphedema massage, or specialized physical therapy can be ordered. Leg swelling can also be an indication of post-operative complications and should be evaluated by your provider. Sexual intimacy issues: Vaginal dryness and scarring at the top of the vagina causing discomfort can occur. Decreased sexual desire can also occur. Use of a lubricant can help prevent or improve vaginal symptoms. If symptoms persist, talk to your provider about alternate treatments. It is not uncommon for cancer to impact other areas of your life such as relationships, work, spirituality, and mental health. If you develop financial concerns, resources are sometimes available to assist in these areas. Depression and anxiety can present either during or after cancer diagnosis and treatment. It is important to discuss with you physician any of these concerns so these resources can be made available to you. Society of Gynecologic Oncology Recommendations What you can do to stay healthy after treatment: Cancer treatments may increase your chance of developing other health problems years after you havecompleted treatment. You can take steps to maintain good health after cancer treatment, including coping with side effects of treatment, reducing the risk of cancer returning, and watching for signs of cancer returning or of a new cancer. Keep in mind that every person treated for cancer is different and that these recommendations are not intended to be a substitute for the advice of a doctor or other health medicare compliance auditor. Please use these recommendations to talk with your doctor and healthcare team about and appropriate follow-up care plan for you. Recommendation for Follow-up for Endometrial Cancer: Have a medical history and physical exam that is focused on detecting signs of cancer recurrence orof new cancers, including a detailed pelvic exam (speculum, pelvic and rectovaginal; however, a routine Pap smear is not recommended for routine cancer follow up). Frequency depends on stage of cancer and other risk factors. For instance, if you had a higher stage of cancer, you may be seen more often. See the table below for general guidelines. If you had endometrial cancer once, there is a chance that it may come back or spread to other parts of your body. The risk is highest in the first two to three years after treatment, but continues for at least five years. After five years, it is recommended that you have a careful history and physical including pelvic exam (check-up) every 12 months for the rest of your life. After cancer treatment, if you feel that something is not right with your body, see your regular doctor, physician ambulance assistant or nurse practitioner. Symptoms to report to your health care team includeabdominal distension, feeling full easily, new and persistent nausea and vomiting, bloating, vaginal bleeding, rectal bleeding, weight loss without effort, new and persistent pain, new and persistentfatigue, new masses (i.e., bumps in your neck or groin), new and persistent cough and any other concerns. If what you are feeling is urgent, and you cannot get an appointment with your regular healthcare team, go to an Urgent Care or Medical Walk-In Clinic. Tell the medical provider you had cancer. Show them a copy of your endometrial cancer treatment summary. Endometrial Cancer Follow-up and Survivorship Care How Frequent? Coordinating Provider Gynecologic Oncology visits Every 3 months for the first 1 year, then every 6 months until the [address] Swetha Hatch & Heidy Coffey APRN Lab tests No routine labs Imaging exams No routine imaging. CT scan for new concerning symptoms or abnormal findings on physical exam Call your doctor if you have any of these signs or symptoms: Vaginal bleeding, pelvic pain, concerning lesions or changes in bowel or bladder function Referrals provided There are no referral needs at this time. General Cancer Screening for Women Cancer screening tests are designed to find cancer or pre-cancerous areas before there are any symptoms and, generally, when treatments are most successful. Various organizations have developed guidelines for cancer screening for women. While these guidelines vary slightly between different organizations, they cover the same basic screening tests for breast, cervical and colorectal cancers. Your health care provider may also evaluate for cancers of the skin, mouth, and thyroid. You should discuss which recommendations and screening tests are right for you. Not all tests are right for every patient. Your personal cancer history may direct your provider to override the general recommendations. The [place] [employer] (ACS) cancer screening guidelines for women: Breast Cancer: Yearly mammograms for women over 40. Women 55 and older should switch to mammograms every 2 years, or may continue yearly screenings. This should continue as long as the woman is in good health. Some women - because of family history, a genetic tendency, or certain other factors - should be screened with MRIs along with mammograms. The number of women who fall into this category is very small. Talk with a health care provider about your personal history and whether you qualify for early or more advanced screening. Know how your breasts normally feel and report any breast changes to your doctor right away. Colon and Rectal Cancer: Starting at age 45, women should follow one of these testing plans. If you are at high risk, based upon personal or family history, you may need to begin screenings early or have them done more often. Talk with a health care provider about the testing plan that is best for you. Tests that find polyps and cancer: Colonoscopy every 10 years (This is the ???gold standard?? ) Flexible sigmoidoscopy every 5 years Double-contrast barium enema every [address] colonography (virtual colonoscopy) every 5 years Tests that mostly find cancer: Yearly guaiac-based fecal occult blood test (gFOBT) Yearly fecal immunochemical test (FIT) Stool DNA test (sDNA) every 3 years Tests that can find both early cancer and polyps should be your first choice if available and you are willing to have one of them. If any of the alternative tests are chosen and there are positive findings, a colonoscopy should be done Multiple stool take home tests should be used for the gFOBT or FIT tests. One test in the office isnot enough. If these are positive, a colonoscopy should be done. Cervical Cancer: Screening should begin at age 21 with a Pap test every 3 years. HPV testing should be only used in women 21-29 if needed after an abnormal result. Women 30-65 may have a Pap test plus and HPV test (???co-testing?? ) every 5 years Women over 65 with a negative history or who have had regular cervical cancer testing within the past 10 years may discontinue screenings. If there is a history of serious cervical pre-cancer, testing should continue for at least 20 years even if it goes past age 65. All women who have been vaccinated against HPV should still follow the screening recommendations for their age group. Some women - because of their health history - may need a different screening schedule or continuedscreenings after a total hysterectomy. Your health care provider will help to determine the best screening schedule for you. Healthy Lifestyle For some cancer survivors, the experience is the impetus to making healthy lifestyle changes. It may seem insignificant, but these changes have been shown to reduce the risk of the cancer coming backor a new cancer developing. Below are some tips on adopting a healthier lifestyle. Practice sun safety: Skin cancer is the most commonly diagnosed type of cancer, and rates are on the rise. It affects both light and dark-skinned people. In most cases, however, it can be prevented or detected early. Exposure to ultraviolet (UV) rays, either by natural sunlight or tanning beds, can lead to skin cancer. In addition, UV rays lead to other forms of skin damage, including wrinkles, loss of skin elasticity, dark patches (sometimes called age spots or liver spots), and pre-cancerous skin changes (such as dry, scaly, rough patches). Sun safety is primary form of prevention: use a broad spectrum sunscreen, avoid peak sun times whenrays are strongest (10 am to 4 pm), wear protective clothing, and avoid tanning beds Examine your skin regularly and have a health care provider examine any concerning areas of moles that have changed. Many dermatologists recommend a yearly head-to-toe skin check. Maintain a healthy weight: Being overweight can increase your chance of your cancer coming back. It can also increase your chance of developing heart disease, diabetes, and stroke. Weight management is different for each woman. You should talk to your health care provider about what a healthy weight is for you, and take steps to reach and maintain that weight. Reaching ideal weight can be challenging for many people. However, losing even 5 to 10 pounds can lower blood pressure, blood sugar, and cholesterol levels. Eat a healthy diet: A healthy diet includes plenty of fruits and vegetables daily. Strive to have two-thirds of your plate be vegetables, fruits, whole-grains or beans. Limit red meats and processed foods. Fish, chicken, and turkey are healthier choices. One-third or less of your plate should be animal products. Drink more water. Limit sodas, juices, and alcohol. Exercise regularly: Experts recommend at least 30 minutes of [id number] activity 5 days per week. This can help control weight, improve energy level, and improve sleep. Exercise routines should be tailored to individual patients. They quinonez is to find an activity that you enjoy (dancing, walking, gardening, etc.) and do it regularly. If you have been inactive for a while, start out slow. Talk to your health care provider about and exercise program that will be beneficial and safe for you. Keep your bones healthy: Screening for osteoporosis typically begins at age 65 or younger if your fracture risk is increased. Women can lose up to 20 percent of their bone density after menopause. Certain cancer treatments, such as chemotherapy or hormonal therapy, can cause bone loss. Eating healthy, regular weight bearing exercise, and getting enough calcium and vitamin D can all help to maximize bone density, preventing fracture and osteoporosis. Avoid tobacco in any form: If you use tobacco of any kind, quit as soon as possible. Continued smoking can lead to recurrence of some cancers and is related to many devastating health conditions Smoking is the most preventable cause of in the [place]. Ask your doctor about smoking cessation or call the national hotline at 0-225-ETMV-NOW Have regular check-ups: Keep up-to-date on recommended health screening tests, regular blood work, and vaccinations. Get a flu shot annually. Get the pneumococcal vaccine as recommended by your health care team. Don???t forget dental and eye health. The [place] [employer] recommends adults see their dentist at least once per year. The [place] [employer] recommends adults have their eyesexamined every two years until age 60, then annually. If you wear corrective lenses, have diabetes,or have a family history of eye disease it may be recommended that you be seen more frequently. 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
--- OUTSIDE RECORDS SUMMARY | 2025-08-30 09:22 | XMS_ITS | Clinical Summary ---
Author Organization [facility] , [facility] Address [address] [place] [address] Phone Care Team Providers Care Utility Arborist Name Role Phone Alylson RONDON, Lalo Gilbert Unavailable + [phone] LOVE RONDON, EILEEN Ewing Unavailable [phone] Reason for Visit and Chief Complaint The Chief Complaint is: right hip pain Problems Includes: Problems addressed during this encounter and other active Problems Current Visit Onset Date Resolved Date Provider Laura nazario Status Joint Pain Hip Right 03/29/2021 Nakia Valadez MD Active Last Documented On 11:01AM ; [facility], [facility] Plan of Treatment Patient presents today with concerns of increasing right anterior hip, groin pain, stiffness. This is significantly interfering with her ability to walk, interfering with sleep and overall quality of life. For this she has tried anti- inflammatories, Tylenol, activity modification without benefit. Today recommend right anterior approach MASSIEL performed at [facility]. Risks, benefit and postoperative course were reviewed with this patient and she wished to proceed with surgery scheduling. - Last Documented On 04/01/2021 4:38PM ; [facility], [facility] Instructions to patient Lose weight Last Documented On 11:30AM ; [facility], [facility] Assessments Includes: Assessments from this encounter Findings Severe right hip DJD [id number] - Last Documented On 04/01/2021 4:38PM ; [facility], [facility] Instructions Includes: Instructions from this encounter Instructions to patient Lose weight Last Documented On 1 11:30AM ; [facility], [facility] Medical Equipment - Implanted Devices Includes: Current Devices No Medical Equipment Recorded Medications Includes: Medications discussed during this encounter and other current Medications Current Medications (continue as prescribed) Medrol 4 MG Oral Tablet Therapy Pack 08/05/2024 Prov ider: Kirill Sepulveda PA-C Diagnosis: take as directed Last Documented On 4 9:47AM By Kirill Sepulveda ; [facility], [facility] Lexapro 5 MG Oral Tablet 03/29/2021 Provider: Diagnosis: Last Documented On 1 11:28AM By Darby Brewster ; [facility], [facility] metFORMIN HCl 500 MG Oral Tablet 03/06/2021 Provider : EILEEN ALEMAN MD Diagnosis: Last Documented On 1 11:28AM By Darby Brewster ; [facility], [facility] Simvastatin 40 MG Oral Tablet 02/26/2021 Provider: EILEEN ALEMAN MD Diagnosis: Last Documented On 1 11:28AM By Darby Brewster ; [facility], [facility] Lisinopril-hydroCHLOROthiazi de 10-12.5 MG Oral Tablet 05/17/2020 Provider: EILEEN ALEMAN MD Diagnosis: Last Documented On 11:28AM By Darby Brewster ; [facility], [facility] Past Medications on file Cephalexin 500 MG Oral Capsule 01/15/2024 - 01/16/2024 Provider: Lalo montero MD Diagnosis: take as directed take all fo ur tabs one hour prior to procedure Last Documented On 4 12:48PM By Carlos Alberto Valadez ; [facility], [facility] Neurontin 300 MG Oral Capsule 04/23/2021 - 07/22/2021 Provider: Lalo montero MD Diagnosis: 1 every bedtime * DO NOT FILL UNTIL 04-24-21 Last Documented On 1 9:52AM By Carlos Alberto Valadez ; [facility], [facility] Ultram 50 MG Oral Tablet 04/23/2021 - 04/28/2021 Provider: Lalo montero MD Diagnosis: 1-2 po q6h prn pain DO NOT FILL UNTIL 04-24-21 Last Documented On 1 9:52AM By Carlos Alberto Valadez ; [facility], [facility] oxyCODONE HCl 5 MG Oral Tablet 04/23/2021 - 04/28/2021 Provider: Lalo montero MD Diagnosis: 1-2 po q 4-6h DO NOT FILL UNTIL 04-24-21 Last Documented On 9:52AM By Carlos Alberto Valadez ; [facility], [facility] Ondansetron HCl 4 MG Oral Tablet 04/23/2021 - 04/28/2021 Provider: Lalo Valadez MD Diagnosis: [id number] DO NOT FILL UNTIL 04-24-21 Last Documented On 9:43AM By Carlos Alberto Valadez ; [facility], [facility] Acetaminophen 500 MG Oral Tablet 04/23/2021 - 05/23/2021 Provider: Lalo Valadez MD Diagnosis: 2 three times a day DO NOT FILL UNTIL 04-24-21* * Last Documented On 9:42AM By Carlos Alberto Valadez ; [facility], [facility] Cefadroxil 500 MG Oral Capsule 04/23/2021 - 04/26/2021 Provider: Lalo montero MD Diagnosis: twice a day DO NOT FILL UNTIL 04-24-21 Last Documented On 9:42AM By Carlos Alberto Valadez ; [facility], [facility] Colace 100 MG Oral Capsule 04/23/2021 - 07/22/2021 Provider: Lalo montero MD Diagnosis: 1-2 tabs daily DO NOT FILL UNTIL 04-24-21 Last Documented On 9:43AM By Carlos Alberto Valadez ; [facility], [facility] Meloxicam 15 MG Oral Tablet 04/23/2021 - 05/07/2021 Provider: Lalo montero MD Diagnosis: once a day DO NOT FILL UNTIL 04-24-21 Last Documented On 9:43AM By Carlos Alberto Valadez ; [facility], [facility] Medications Administered Includes: Administered Medications from this encounter No Administered Medications Recorded Vital Signs Includes: Vital Signs from this encounter Vital Name 03/29/2021 11:32A Blood Pressure Sitting (mmHg) 133/81 Pulse Rate-Sitting (bpm) 62 Height (in) 62 Weight (lb) 225 Body Mass Index (kg/m2) 41.2 Body Surface Area (m2) 2.0 Note: rj/HL Last Documented: On 03/29/2021 11:55A M ; [facility], [facility] Results Includes: Results discussed during this encounter No Results Recorded For Specified Dates History of Present Illness Includes: History of Present Illness from this encounter DIAZ Atkinson is a 60 year old female. - Symptoms giving way. - Allergy list reviewed - Medication reconciliation performed - Medication list reviewed with patient - Sharp pain Symptoms - Pain is occasional (25% of the time) - Patient pain level from 1-10: 8 - Yes, previous treatment. Social History Description Last Updated Non-smoker 03/29/2021 Last Documented On 1 4:38PM ; [facility], [facility] No caffeine use 03/29/2021 Last Documented On 1 4:38PM ; [facility], [facility] No recent change in diet 03/29/2021 Last Documented On 1 4:38PM ; [facility], [facility] Not a current smoker. 03/29/2021 Last Documented On 1 4:38PM ; [facility], [facility] Not exercising regularly 03/29/2021 Last Documented On 1 4:38PM ; [facility], [facility] Not using alcohol 03/29/2021 Last Documented On 1 4:38PM ; [facility], [facility] Not using drugs 03/29/2021 Last Documented On 1 4:38PM ; [facility], [facility] Smoking Status Unknown Procedures and Surgical History Includes: Procedures from this encounter Procedures Code Diagnosis Performing Provider Service L ocation Service Date use of tobacco assessment performed 1000F Last Documented On 1 11:30AM ; [facility], [facility] an X-ray was performed 21541 Last Documented On 1 11:29AM ; [facility], [facility] Medical History Includes: Medical History addressed during this encounter Description Last Updated History of diabetes mellitus 03/29/2021 Last Documented On 1 4:38PM ; [facility], [facility] No recent immunization for flu 1 Last Documented On 1 4:38PM ; [facility], [facility] Past Surgical History: eardrum repair Last Documented On 1 4:38PM ; [facility] Recent immunization for pneumococcal pne umonia 03/29/2021 Last Documented On 1 4:38PM ; [facility] Family History Includes: Family History addressed during this encounter Description Last Updated No significant family history 03/29/2021 Last Documented On 1 4:38PM ; [facility] Review of Systems Includes: Review of Systems [...] Exam Includes: Physical Exam from this encounter Immunizations Includes: Immunizations addressed during this encounter Vaccine Dose # Date Site Reaction(s) Status Source PCV (Pneumovax 23) 1 10/30/2020 Complete ( Reported) Patient Last Documented On 1 11:29AM ; [facility] Allergies Includes: Active Allergies Substance Type Reaction Onset Date Resolved Date Statu s Gabapentin Allergy hallucinations 06/05/2021 Act michelle Last Documented On 4 8:40AM ; [facility] Encounters Encounter Provider Location Date Check-In Time Check-Out Time Diagnosis Physician Specified Lalo Valadez MD [facility] 03/29/20 11:08AM 12:30PM Insurance Includes: Active Insurance Policies Plan Name Member ID Group # Subscriber Relationship Effect michelle Dates 1 - Medicare Part B [facility] [id number] Brandy Atkinson Self 08/30/2023 - Unknown 2 - [email or web address] [id number] Brandy Atkinson Self 08/30/2023 - Unknown Clinical Notes Includes: Clinical Notes from this encounter No Clinical Notes Recorded
--- OUTSIDE RECORDS SUMMARY | 2025-08-30 09:22 | XMS_ITS ---
Author Organization [facility] , [facility] Address [address] [place] [address] Phone Care Team Providers Care Neck Band Operator Name Role Phone Allyson RONDON, Laol Gilbert Unavailable + [phone] LOVE RONDON, EILEEN Ewing Unavailable [phone] Problems Includes: Active, inactive, and resolved Problems All Visits Onset Date Resolved Date Provider Condition S tatus Joint Pain Hip Right 03/29/2021 Lalo Valadez MD Active Last Documented On 1 11:01AM ; [facility], [facility] Plan of Treatment Findings Encounter Date Patient screened for future fall risk: documentation of any fall with injury in past year NEW PROBLEM/EST PT with Kirill Sepulveda PA-C 08/05/2024 Last Documented On 4 9:43AM ; [facility], [facility] Instructions to patient Lose weight Last Documented On 4 9:23AM ; [facility], [facility] Lose weight Last Documented On 1 12:49PM ; [facility], [facility] Lose weight Last Documented On 1 11:30AM ; [facility], [facility] Assessments Includes: Assessments for all patient encounters Findings Encounter Date Overweight NEW PROBLEM/EST PT with Kirill Sepulveda PA-C 08/05/2024 Last Documented On 4 9:43AM ; [facility], [facility] Instructions Includes: Instructions for all patient encounters Instructions to patient Lose weight Last Documented On 4 9:23AM ; [facility], [facility] Lose weight Last Documented On 1 12:49PM ; [facility], [facility] Lose weight Last Documented On 1 11:30AM ; [facility], [facility] Medical Equipment - Implanted Devices Includes: Current and historical Devices No Medical Equipment Recorded Medications Includes: Current and historical Medications Current Medications (continue as prescribed) Medrol 4 MG Oral Tablet Therapy Pack 08/05/2024 Prov ider: Kirill Sepulveda PA-C Diagnosis: take as directed Last Documented On 4 9:47AM By Kriill Sepulveda ; [facility], [facility] Lexapro 5 MG Oral Tablet 03/29/2021 Provider: Diagnosis: Last Documented On 11:28AM By Darby Brewster ; [facility], [facility] metFORMIN HCl 500 MG Oral Tablet 03/06/2021 Provider : EILEEN ALEMAN MD Diagnosis: Last Documented On 11:28AM By Darby Brewster ; [facility], [facility] Simvastatin 40 MG Oral Tablet 02/26/2021 Provider: EILEEN ALEMAN MD Diagnosis: Last Documented On 11:28AM By Darby Brewster ; [facility], [facility] Lisinopril-hydroCHLOROthiazi de 10-12.5 MG Oral Tablet 05/17/2020 Provider: EILEEN ALEMAN MD Diagnosis: Last Documented On 1 11:28AM By Darby Brewster ; [facility], [facility] Past Medications on file Cephalexin 500 MG Oral Capsule 01/15/2024 - 01/16/2024 Provider: Lalo montero MD Diagnosis: take as directed take all fo ur tabs one hour prior to procedure Last Documented On 4 12:48PM By Carlos Alberto Valadez ; [facility], [facility] Neurontin 300 MG Oral Capsule 04/23/2021 - 07/22/2021 Provider: Lalo montero MD Diagnosis: 1 every bedtime * DO NOT FILL UNTIL 04-24-21 Last Documented On 1 9:52AM By Carlos Alberto Valadez ; [facility], [facility] Ultram 50 MG Oral Tablet 04/23/2021 - 04/28/2021 Provider: Lalo montero MD Diagnosis: 1-2 po q6h prn pain DO NOT FILL UNTIL 04-24-21 Last Documented On 1 9:52AM By Carlos Alberto Valadez ; [facility], [facility] oxyCODONE HCl 5 MG Oral Tablet 04/23/2021 - 04/28/2021 Provider: Lalo montero MD Diagnosis: 1-2 po q 4-6h DO NOT FILL UNTIL 04-24-21 Last Documented On 9:52AM By Carlos Alberto Valadez ; [facility], [facility] Ondansetron HCl 4 MG Oral Tablet 04/23/2021 - 04/28/2021 Provider: Lalo Valadez MD Diagnosis: [id number] DO NOT FILL UNTIL 04-24-21 Last Documented On 1 9:43AM By Carlos Alberto Valadez ; [facility], [facility] Acetaminophen 500 MG Oral Tablet 04/23/2021 - 05/23/2021 Provider: Lalo Valadez MD Diagnosis: 2 three times a day DO NOT FILL UNTIL 04-24-21* * Last Documented On 9:42AM By Carlos Alberto Valadez ; [facility], [facility] Cefadroxil 500 MG Oral Capsule 04/23/2021 - 04/26/2021 Provider: Lalo montero MD Diagnosis: twice a day DO NOT FILL UNTIL 04-24-21 Last Documented On 1 9:42AM By Carlos Alberto Valadez ; [facility], [facility] Colace 100 MG Oral Capsule 04/23/2021 - 07/22/2021 Provider: Lalo montero MD Diagnosis: 1-2 tabs daily DO NOT FILL UNTIL 04-24-21 Last Documented On 9:43AM By Carlos Alberto Valadez ; [facility], [facility] Meloxicam 15 MG Oral Tablet 04/23/2021 - 05/07/2021 Provider: Lalo montero MD Diagnosis: once a day DO NOT FILL UNTIL 04-24-21 Last Documented On 9:43AM By Carlos Alberto Valadez ; [facility], [facility] Medications Administered Includes: Administered Medications in patient's chart No Administered Medications Recorded Results Includes: Results from 08/30/2024 through 08/30/2025 No Results Recorded For Specified Dates History of Present Illness History of Present Illness not supported for this document type No History of Present Illness Recorded Social History Description Last Updated No caffeine use 08/05/2024 Last Documented On 4 9:43AM ; [facility], [facility] No recent change in diet 08/05/2024 Last Documented On 4 9:43AM ; [facility], [facility] Not a current smoker. 08/05/2024 Last Documented On 4 9:43AM ; [facility] Not exercising regularly 08/05/2024 Last Documented On 4 9:43AM ; [facility], [facility] Not using alcohol 08/05/2024 Last Documented On 4 9:43AM ; [facility] Not using drugs 08/05/2024 Last Documented On 4 9:43AM ; [facility], [facility] Non-smoker 03/29/2021 Last Documented On 1 4:38PM ; [facility] No recent change in diet 03/29/2021 Last Documented On 1 4:38PM ; [facility] Not a current smoker. 03/29/2021 Last Documented On 1 4:38PM ; [facility], [facility] Smoking Status Unknown Procedures and Surgical History Surgical History Last Updated History of hysterectomy 08/05/2024 Last Documented On 4 9:43AM ; [facility] History of total hip replacement 024 Last Documented On 4 9:43AM ; [facility], [facility] Medical History Includes: Medical History in patient's chart Description Last Updated History of diabetes mellitus 08/05/2024 Last Documented On 4 9:43AM ; [facility], [facility] History of Hypertension 08/05/2024 Last Documented On 4 9:43AM ; [facility] No recent immunization for flu 1 Last Documented On 1 4:38PM ; [facility] Past Surgical History: eardrum repair Last Documented On 1 4:38PM ; [facility] Recent immunization for pneumococcal pne umonia 03/29/2021 Last Documented On 1 4:38PM ; [facility] Family History Includes: Family History in patient's chart Description Last Updated Paternal history of family history of he art disease 08/05/2024 Last Documented On 4 9:43AM ; [facility] No significant family history 03/29/2021 Last Documented On 1 4:38PM ; [facility] Review of Systems Review of Systems not supported for this document type No Review of Systems Recorded Mental Status Description No anxiety Functional Status No Functional Status Recorded Physical Exam Physical Exam not supported for this document type No Physical Exam Recorded Immunizations Includes: Immunizations in patient's chart Vaccine Dose # Date Site Reaction(s) Status Source PCV (Pneumovax 23) 1 10/30/2020 Complete ( Reported) Patient Last Documented On 1 11:29AM ; [facility] Allergies Includes: Active, inactive, and resolved Allergies Substance Type Reaction Onset Date Resolved Date Statu s Gabapentin Allergy hallucinations 06/05/2021 Act michelle Last Documented On 4 8:40AM ; [facility] Insurance Includes: Active Insurance Policies Plan Name Member ID Group # Subscriber Relationship Effect michelle Dates 1 - Medicare Part B [facility] [id number] [place] Self 08/30/2023 - Unknown 2 - [email or web address] [id number] Gemma Manderson Self 08/30/2023 - Unknown Clinical Notes Includes: Signed Clinical Notes starting from 11/13/2022 No Clinical Notes Recorded
== END 2025-08-30 23:59 | disposition home or self-care (01) ==
LOC: RAD 09:03
PROVIDERS: PCP Family Medicine; Visit Provider Family Medicine
DX: M54.9 Dorsalgia, unspecified (principal)
CPT/HCPCS: 74018